=== PATIENT | female | born 1930 | race Caucasian/White ===

== ENCOUNTER 2017-02-11 14:05 | Outpatient (CLI) | payer MEDICARE ==
[2017-02-11 20:28] LABS: Bilirubin Negative (Negative); Blood, Urine Moderate (Negative); Clarity Slightly Cloudy (Clear); Glucose, Urine (Dipstick) Negative (Negative); Leukocyte Large (Negative); Nitrite Positive (Negative); Protein, Urine (Dipstick) 100 mg/dL (Neg-Trace); Specific Gravity, Urine 1.015 (1.005-1.030); Urobilinogen 0.2 mg/dL (0.2-1.0)
[2017-02-11 21:07] LABS: pH, Urine Greater/Equal 9.0 (5.0-9.0)
[2017-02-11 21:11] LABS: Bacteria/HPF 1+ HPF (None Seen); Crystals/HPF RARE TRIPLE PHOS HPF (Negative); RBC/HPF 0-3 HPF (0-3); Squamous Epithelial 0-3 HPF (0-3); WBC/HPF 21-50 HPF (0-3)
== END 2017-02-11 14:06 | disposition home or self-care (01) ==
LOC: HPCALD 14:05
PROVIDERS: ATTEND Family Medicine
DX: N39.0 Urinary tract infection, site not specified (principal)
CPT/HCPCS: 81001; 87077; 87086

== ENCOUNTER 2017-02-24 08:46 | Outpatient (CLI) | payer MEDICARE ==
[2017-02-24 09:23] LABS: #Basophils 0.1 thou/uL (0.0-0.2); #Eosinphils 0.2 thou/uL (0.0-0.7); #Monocytes 0.8 thou/uL (0.11-0.59); #Neutrophils 5.1 thou/uL (1.40-6.50); %Basophils 1.3 % (0.0-1.0); %Eosinophils 2.1 % (0.0-10.0); %Monocytes 8.9 % (0.0-10.0); %Neutrophils 59.7 % (42.0-75.0); Hemoglobin 15.8 g/dL (12.0-16.0); Mean Corpuscular HGB CONC 36.4 g/dL (32.0-36.0); Mean Corpuscular Hemoglobin 34.5 pg (27.0-31.0); Mean Corpuscular Volume 94.9 fl (81.0-99.0); Mean Platelet Volume 8.3 fL (7.4-10.4); Platelet Count 206 thou/uL (130-400); RBC Distribution Width 12.4 % (11.5-14.5); Red Blood Cell (RBC) Count 4.56 mill/uL (4.20-5.40); White Blood Cell (WBC) Count 8.6 thou/uL (4.8-10.8)
[2017-02-24 09:25] LABS: MDiff Complete? YES; Manual Diff?? NO
[2017-02-24 09:47] LABS: Hemoglobin A1c 5.7 % (4.0-6.0)
[2017-02-24 10:19] LABS: ALT (SGPT) 20 U/L (0-55); AST (SGOT) 18 U/L (5-34); Albumin 4.4 g/dL (3.4-4.8); Alkaline Phosphatase 74 U/L (40-150); Anion Gap 15 mmol/L (10-20); BUN (Urea Nitrogen) 16 mg/dL (9.8-20.1); Bilirubin, Total 0.8 mg/dL (0.2-1.2); Calc. Creatinine Clearance 0 mL/min (70-130); Calcium 9.3 mg/dL (7.8-10.44); Carbon Dioxide 29 mmol/L (23-31); Chloride 106 mmol/L (98-107); Cholesterol 222 mg/dL (< 200 Desired); Estimated GFR-MDRD 59; Globulin 2.4 g/dL (2.4-3.5); Glucose 68 mg/dL (83-110); HDL Cholesterol 37 mg/dL (>60 Neg Risk); LDL Cholesterol, Calculated 141 mg/dL; Magnesium 2.2 mg/dL (1.6-2.6); Potassium 3.8 mmol/L (3.5-5.1); Protein, Total 6.8 g/dL (5.8-8.1); Sodium 146 mmol/L (136-145); Triglycerides 219 mg/dL (Less than 150)
[2017-02-24 10:36] LABS: Free T4 (Free Thyroxine) 0.8 ng/dL (0.70-1.48); Thyroid Stimulating Hormone 0.0671 uIU/mL (0.35-4.94)
== END 2017-02-24 08:47 | disposition home or self-care (01) ==
LOC: BURLAB 08:46
PROVIDERS: ATTEND Family Medicine
DX: E78.2 Mixed hyperlipidemia (principal); E03.9 Hypothyroidism, unspecified; E55.9 Vitamin D deficiency, unspecified; I10 Essential (primary) hypertension; I48.91 Unspecified atrial fibrillation; Z79.899 Other long term (current) drug therapy
CPT/HCPCS: 36415; 80053; 80061; 82306; 83036; 83735; 84439; 84443; 85025

== ENCOUNTER 2017-05-16 11:22 | Emergency (ER) | payer MEDICARE ==
[2017-05-16] MEDS ORDERED: Labetalol HCl 100 MG/20 ML VIAL ONE (11:40)
[2017-05-16 11:46] LABS: #Basophils 0.1 thou/uL (0.0-0.2); #Eosinphils 0.2 thou/uL (0.0-0.7); #Lymphocytes 2.5 thou/uL (1.20-3.40); #Monocytes 0.8 thou/uL (0.11-0.59); #Neutrophils 6.5 thou/uL (1.40-6.50); %Basophils 0.9 % (0.0-1.0); %Eosinophils 1.5 % (0.0-10.0); %Lymphocytes 25.1 % (21.0-51.0); %Monocytes 7.8 % (0.0-10.0); %Neutrophils 64.7 % (42.0-75.0); Hemoglobin 16.1 g/dL (12.0-16.0); Mean Corpuscular Hemoglobin 30.9 pg (27.0-31.0); Mean Corpuscular Volume 90.7 fl (81.0-99.0); Platelet Count 216 thou/uL (130-400)
[2017-05-16 11:53] LABS: INR-International Normal Ratio 1.6; PTT 32.1 SEC (22.9-36.1); Prothrombin Time 19.5 SEC (12.0-14.7)
[2017-05-16 12:01] LABS: ALT (SGPT) 19 U/L (8-55); AST (SGOT) 15 U/L (5-34); Albumin 4.6 g/dL (3.4-4.8); Alkaline Phosphatase 74 U/L (40-150); Anion Gap 14 mmol/L (10-20); BUN (Urea Nitrogen) 17 mg/dL (9.8-20.1); Bilirubin, Total 0.8 mg/dL (0.2-1.2); CK (CPK) 29 U/L (29-168); Calc. Creatinine Clearance 0 mL/min (70-130); Calcium 9.8 mg/dL (7.8-10.44); Carbon Dioxide 29 mmol/L (23-31); Chloride 105 mmol/L (98-107); Estimated GFR-MDRD 53; Globulin 3.2 g/dL (2.4-3.5); Glucose 117 mg/dL (83-110); Potassium 4.1 mmol/L (3.5-5.1); Protein, Total 7.8 g/dL (6.0-8.3); Sodium 144 mmol/L (136-145)
[2017-05-16 12:04] LABS: CKMB 1.1 ng/mL (0-6.6); Troponin I 0.013 ng/mL (< 0.028)
--- NOTE | 2017-05-16 17:46 | CT ---
CT OF THE BRAIN WITHOUT CONTRAST 05/16/17 Comparison is made with a prior CT dated 01/13/16. The findings are quite similar and show some focal areas of patchy hypolucency throughout the deep w sally matter bilaterally. The most prominent is in the right parietal region which was present before . The other area of slight prominence is in the left posterior frontal region. While seen better tod ay than previously, it was probably present before. Otherwise, there were no findings of acute strok e, mass, or edema. Some atrophy is present with mild compensatory dilatation of the ventricles. Ther e is no ventricular shift. The pituitary gland may be slightly generous in size, but this is difficu lt to assess on CT scanning. IMPRESSION: 1. No definite acute findings. Slight area of low density in the left posterior frontal region was probably present on the 2016 scan, though seen better today. If the clinical symptoms were stron gly suggestive of acute stroke, then an MRI would be needed to separate this out from chronic ischem ic change. 2. There is some chronic ischemic change in this patient. 3. Equivocal prominence of pituitary tissue but an equivocal finding on this one scan alone. I am not sure it is substantially different than the 2016 scan. POS: HOME
== END 2017-05-16 15:03 ==
LOC: BURERS 11:22
DX: R47.1 Dysarthria and anarthria (principal); I10 Essential (primary) hypertension; E11.9 Type 2 diabetes mellitus without complications; E03.9 Hypothyroidism, unspecified; K21.9 Gastro-esophageal reflux disease without esophagitis; E78.5 Hyperlipidemia, unspecified; M19.90 Unspecified osteoarthritis, unspecified site; F32.9 Major depressive disorder, single episode, unspecified; Z79.899 Other long term (current) drug therapy
CPT/HCPCS: 36416; 70450; 80053; 82553; 84484; 85025; 85610; 85730; 93005; 94760

== ENCOUNTER 2017-05-28 09:06 | Outpatient (CLI) | payer MEDICARE ==
[2017-05-28 10:34] LABS: Anion Gap 15 mmol/L (10-20); BUN (Urea Nitrogen) 14 mg/dL (9.8-20.1); Calc. Creatinine Clearance 0 mL/min (70-130); Calcium 9.4 mg/dL (7.8-10.44); Carbon Dioxide 29 mmol/L (23-31); Cardiac Risk 3.2 (Less than 4.5); Chloride 103 mmol/L (98-107); Cholesterol 121 mg/dl (< 200 Desired); Estimated GFR-MDRD 60; Glucose 141 mg/dL (83-110); HDL Cholesterol 38 mg/dL (>60 Neg Risk); LDL Cholesterol, Calculated 50 mg/dL; Potassium 3.9 mmol/L (3.5-5.1); Sodium 143 mmol/L (136-145); Triglycerides 167 mg/dL (Less than 150)
[2017-05-28 12:10] LABS: Hemoglobin A1c 5.9 % (4.0-6.0)
== END 2017-05-28 09:07 | disposition home or self-care (01) ==
LOC: BURLAB 09:06
PROVIDERS: ATTEND Family Medicine
DX: E11.9 Type 2 diabetes mellitus without complications (principal); E78.5 Hyperlipidemia, unspecified; Z79.899 Other long term (current) drug therapy
CPT/HCPCS: 36415; 80048; 80061; 83036

== ENCOUNTER 2019-01-05 07:56 | Emergency (ER) | payer MEDICARE ==
[2019-01-05] MEDS ORDERED: Prochlorperazine 10 MG/2 ML VIAL ONE (08:34)
[2019-01-05] MEDS ORDERED: diphenhydrAMINE 50 MG/ML VIAL ONE (08:35)
[2019-01-05 08:37] LABS: #Basophils 0.1 thou/uL (0.0-0.2); #Lymphocytes 1.7 thou/uL (1.20-3.40); #Monocytes 0.9 thou/uL (0.11-0.59); #Neutrophils 9.9 thou/uL (1.40-6.50); %Basophils 0.5 % (0.0-1.0); %Eosinophils 0.4 % (0.0-10.0); %Lymphocytes 13.4 % (21.0-51.0); %Monocytes 6.8 % (0.0-10.0); %Neutrophils 78.8 % (42.0-75.0); Hemoglobin 15.8 g/dL (12.0-16.0); Mean Corpuscular Hemoglobin 31.4 pg (27.0-31.0); Mean Corpuscular Volume 89.7 fL (78.0-98.0); Mean Platelet Volume 8.5 fL (7.4-10.4); Platelet Count 225 thou/uL (130-400); RBC Distribution Width 12.5 % (11.5-14.5); Red Blood Cell (RBC) Count 5.03 mill/uL (4.20-5.40); White Blood Cell (WBC) Count 12.6 thou/uL (4.8-10.8)
[2019-01-05 08:52] LABS: ALT (SGPT) 34 U/L (8-55); AST (SGOT) 19 U/L (5-34); Albumin 4.7 g/dL (3.4-4.8); Alkaline Phosphatase 70 U/L (40-150); Anion Gap 15 mmol/L (10-20); BUN (Urea Nitrogen) 20 mg/dL (9.8-20.1); Bilirubin, Total 0.9 mg/dL (0.2-1.2); Calc. Creatinine Clearance 0 mL/min (70-130); Calcium 9.6 mg/dL (7.8-10.44); Carbon Dioxide 29 mmol/L (23-31); Chloride 100 mmol/L (98-107); Estimated GFR-MDRD 66; Globulin 2.9 g/dL (2.4-3.5); Glucose 197 mg/dL (83-110); Potassium 3.2 mmol/L (3.5-5.1); Protein, Total 7.6 g/dL (6.0-8.3); Sodium 141 mmol/L (136-145)
--- NOTE | 2019-01-05 09:24 | CT ---
CT OF THE BRAIN WITHOUT CONTRAST: Date: 01/05/19 Computed tomography of the brain was performed for evaluation of headache. Comparison is made with a 05/16/17 CT exam. FINDINGS: A rounded, 1.4 cm, density is seen in the suprasellar region today that looks larger than before and is rounder. Prior MRI showed a sellar mass arising into the suprasellar region and slightly pressing on the optic chiasm. The overall size is a bit larger today and it seems a bit denser than before. No subarachnoid hemorrhage was seen. No blood seen elsewhere in the brain. Overall, diffuse atrophy and chronic deep white matter ischemic changes predominate. Small acute strokes would be missed due that background. There is no evidence of edema. The ventricular sizes are normal given age and atrophy. IMPRESSION: 1.4 cm sellar/suprasellar mass that seems to have enlarged since the 2017 CT scan. It also has become more hyperdense. The presumption is that this is an enlargement of the known mass, rather than an a neurysm. MRI could be helpful given a prior comparison. Consultation with neurosurgery to determina te if any other actions should be considered would be prudent. Discussed initially with Dr. Koch at 0850 hours and follow-up at 0858 hours. CODE CR. POS: HOME
[2019-01-05] MEDS ORDERED: Fentanyl 100 MCG/2 ML VIAL ONE (10:10)
[2019-01-05] MEDS ORDERED: Amlodipine 5 MG TAB PO SCH (10:30)
[2019-01-05] MEDS ORDERED: Lisinopril 10 MG TAB PO SCH (10:30)
== END 2019-01-05 10:29 | disposition short-term general hospital (02) ==
LOC: BURERS 07:56
DX: R22.0 Localized swelling, mass and lump, head (principal); E03.9 Hypothyroidism, unspecified; K21.9 Gastro-esophageal reflux disease without esophagitis; E78.5 Hyperlipidemia, unspecified; I10 Essential (primary) hypertension; M19.90 Unspecified osteoarthritis, unspecified site; E87.6 Hypokalemia; E11.9 Type 2 diabetes mellitus without complications; Z79.899 Other long term (current) drug therapy; Z79.4 Long term (current) use of insulin; Z79.01 Long term (current) use of anticoagulants
CPT/HCPCS: 36415; 70450; 80053; 84443; 85025; 93005; 94760; 96374; 96375; J0780; J1200; J3010

== ENCOUNTER 2019-01-12 16:35 | Inpatient (IN) | payer MEDICARE ==
[2019-01-12] MEDS ORDERED: Hyoscyamine Sulfate SL 0.125 mg Tablet SL PRN (21:09)
[2019-01-12] MEDS ORDERED: Phenazopyridine HCl 97.5 MG TABLET PO PRN (21:09)
[2019-01-12] MEDS ORDERED: Nystatin Powder 15 GM BOT TOP PRN (21:09)
[2019-01-12] MEDS ORDERED: HumaLOG 300 UNITS/3 ML VIAL SC PRN (21:12)
[2019-01-12] MEDS ORDERED: Dextrose 5% in Water 1,000 ML IV PRN (21:12)
[2019-01-12] MEDS ORDERED: Dextrose 50% Abboject 50 ML SYRINGE SLOW IVP PRN (21:12)
[2019-01-12 22:11] VITALS: BMI 29.7
[2019-01-12] MEDS: Vancomycin HCl 25 MG/ML Oral PO SCH (22:54)
--- NOTE | 2019-01-13 03:26 | HP ---
CHIEF COMPLAINT: Need for rehabilitation. HISTORY OF THE PRESENT ILLNESS: Mrs. Andrew Potts is an 88-year-old female with a past medical history of sellar mass, diagnosed in 2017, diabetes, hypothyroidism, GERD, hyperlipidemia, hypertension, early Alzheimer dementia, hypokalemia, and history of bladder surgery and subsequent suprapubic cath placement, who presented to the emergency room on January 05, 2019, with complaint of severe headache. She reported it was the worst headache of her life. There was no clear trigger and no alleviating factors. The symptoms started suddenly and were associated with nausea. An MRI was performed, which showed increasing size of her suprasellar mass with a possible hemorrhage. Neurosurgery was consulted. They determined that this was a hemorrhage within the pituitary adenoma that was previously known to exist and suspect that it will likely involute and resolve and improve spontaneously. The patient was on Xarelto for history of chronic atrial fibrillation, and this was held along with her aspirin. She was monitored while hospitalized and had no evidence of worsening of symptoms and eventually was able to have her aspirin restarted at the direction of Neurosurgery and they had also stated she would be able to restart her Xarelto 2 weeks after her admission on approximately January 20. The patient also had an elevated white blood cell count of 20,000 on admission and had no other symptoms. She had diarrhea on and off for months with a history of chronic indwelling suprapubic cath for neurogenic bladder and has over the past few months had multiple courses of antibiotics for possible UTIs. The patient was originally started on empiric antibiotics. However, her stool tested positive for Clostridium difficile antigen and toxin. Her urine culture grew out 5 different organisms, and therefore, Dr. Sanchez with Infectious Disease was consulted. He concluded that the leukocytosis was most likely due to a chronic Clostridium difficile infection from her recurrent antibiotics for bacteria in her bladder. He recommended against treating the bacteria in the bladder without any evidence of invasive infection and has recommended a 2-week course of vancomycin followed by about a 1-month taper to try and prevent recurrence of the Clostridium difficile. On the date of her transfer, since her suprapubic cath was due to be changed in [place] with her urologist on January 13, Urology was consulted and performed a suprapubic catheter change. The patient reports minimal discomfort from this change. The patient is currently without complaints and glad to be back in [place]. She denies pain, nausea, or vomiting. She does admit to some abdominal soreness. She states that she is now having hard formed stools and actually has not had a recent bowel movement. Her contact isolation was ordered to continue. PAST MEDICAL HISTORY: 1. 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 2. Recent sepsis due to Clostridium difficile that has now resolved. 3. Clostridium difficile colitis in December 2018. 4. Neurogenic bladder, status post suprapubic cath with cath change on January 12, 2019. 5. Hypothyroidism. 6. Chronic atrial fibrillation with anticoagulation being held until January 20, 2019. 7. Type 2 diabetes. 8. Hypertension. 9. Early Alzheimer dementia. 10. Gastroesophageal reflux disease. 11. Hyperlipidemia. PAST SURGICAL HISTORY: 1. Hysterectomy. 2. Right hip repair. 3. Bilateral knee surgery. 4. Hemorrhoids. 5. Bladder surgery. 6. Suprapubic catheter placement. 7. Cholecystectomy. 8. Salivary gland removal that resulted in nerve damage to the left side of the face/eyelid. SOCIAL HISTORY: The patient denies alcohol, drugs, or smoking in her history. She is and lives with her in [place], who is apparently suffering from advanced Alzheimer's. FAMILY HISTORY: Noncontributory for the current presentation. ALLERGIES: ADHESIVE TAPE, CYMBALTA, LATEX, NATURAL RUBBER, PENICILLIN, PHENOBARBITAL, AND TRAMADOL. MEDICATIONS: 1. Aspirin 81 mg p.o. daily. 2. Benzonatate 100 mg p.o. t.i.d. 3. Tricor 145 mg orally at bedtime. 4. Flecainide 50 mg p.o. b.i.d. 5. Lantus 15 units subcu at bedtime. 6. Zofran ODT 4 mg orally every 6 hours as needed. 7. Potassium chloride 10 mEq orally every morning with breakfast. 8. Trospium 20 mg p.o. b.i.d. 9. Vancomycin 125 mg orally every 6 hours. 10. Amlodipine 5 mg p.o. q.p.m. 11. Levothyroxine 125 mcg p.o. daily. 12. Zestril 10 mg p.o. daily. 13. Aricept 10 mg p.o. at bedtime. 14. Imdur ER 30 mg p.o. daily. 15. Phenazopyridine 100 mg p.o. b.i.d. p.r.n. bladder spasms. 16. [place] 10/325 one p.o. q.6 hours p.r.n. pain. 17. Hyoscyamine sulfate sublingual 0.125 mg sublingually every 6 hours as needed for cramping. 18. Sertraline 50 mg p.o. at bedtime. 19. Atorvastatin 40 mg p.o. at bedtime. REVIEW OF SYSTEMS: CONSTITUTIONAL: The patient has had no fever or chills. She does have generalized weakness from her hospital stay. HEENT: Eyes, the patient reports strabismus and inability to open her eyelid on the left that is chronic and worsening over time. She denies diplopia, and wears corrective lenses. ENT; the patient denies rhinorrhea, sore throat, or ear pain. RESPIRATORY: Denies cough, sputum production, shortness of breath, or hemoptysis. CARDIOVASCULAR: Denies chest pain, palpitations, orthopnea, or PND. GASTROINTESTINAL: The patient denies any current nausea or vomiting, although she presented with this. She reports intermittent diarrhea off and on that has now resolved and some abdominal soreness. NEUROLOGIC: The patient has had severe headache at the time of presentation that has improved. No vertigo or presyncopal feelings. She denies numbness or tingling or focal weakness. GENITOURINARY: The patient has an indwelling suprapubic cath. She has had no gross hematuria. LYMPH: The patient has had no swelling. DERM: The patient has had some intertriginous erythema that has been treated with powder during her hospitalization and has had a protective barrier to the sacrum. She has no known wounds. She denies any itching or rash otherwise. PHYSICAL EXAMINATION: VITAL SIGNS: Temperature 99.2, pulse 98, respirations 20, O2 saturation 92% on room air, and blood pressure 105/55. GENERAL: Well-developed, overweight female, who is alert and oriented to person, place, and situation. She is also oriented to the time. HEENT: Ptosis on the left. The left pupil is nonreactive to light and accommodation and is deviated to the left. The right pupil is 3 mm and reactive to light and accommodation, right extraocular muscles are intact. Left extraocular muscles to the caudad, cephalad, and the left direction are intact. She has decreased extraocular movement of the left to the right. Nares are patent without discharge. Tongue protrudes in the midline. Her soft palate is clear. No tonsillar erythema or exudate. There is a yellow crusted matting to bilateral eyes, left greater than right. NECK: Supple without lymphadenopathy, thyromegaly, JVD, or bruit. CARDIOVASCULAR: Regular rate and rhythm with a 3/6 systolic ejection murmur, best heard at the left upper sternal border without radiation. LUNGS: Clear to auscultation with good air entry bilaterally. No crackles, wheezes, or increased work of breathing. ABDOMEN: Hypoactive bowel sounds in all 4 quadrants. Soft, nontender, and nondistended. No masses, guarding, or rebound tenderness. Suprapubic catheter is present with a small amount of bloody discharge. No surrounding erythema or purulent drainage. : Clear yellow urine in bag. SKIN: The patient has petechia to the bilateral forearms. She has blanching erythema to the sacral region, but no skin breakdown. NEUROLOGIC: Moves all extremities x4. Generalized weakness. Cranial nerves 2 through 12 were grossly intact with the exception of the ptosis, extraocular deficit as noted above. LABORATORY DATA: CBC performed on January 09, 2019, with white count of 11,000, 74 % neutrophils, 16% lymphocytes, hemoglobin 13.3, hematocrit 38.1, platelet 186. Metabolic profile from January 12; sodium 134, potassium 3.7, chloride 93, bicarbonate 33, BUN 13, creatinine 1.03, glucose 124, calcium 9.6. LFTs from January 08 are within normal limits. Hemoglobin A1c was 6 on December 11. Magnesium on January 09 was 1.6. TSH on January 06 was 0.13, free T3 of 1.06, free T4 of 0.85. Urine on January 05 was remarkable for 100 protein, moderate blood, trace leukocyte esterase, 11 to 20 wbc's, 4 to 6 rbc's, 3+ urine bacteria. Urine culture from January 05 grew out presumptive Pseudomonas, gram-negative beatriz 1, 2, and 3, and gamma hemolytic Streptococcus. Blood culture on January 06 x2 negative for growth at 5 days. Clostridium difficile antigen and toxin on January 09, 2019, positive. IMAGING STUDIES: MRI of the brain on January 05, 2019, with slightly enlarging pituitary lesion with signal characteristics concerning for acute internal hemorrhage. CT [place] angio with contrast on January 06, 2019, showed no evidence of aneurysm of the [place]. Symmetric enhancement in luminal diameter of both intracranial and internal carotid arteries. No significant stenosis at the level of the sellar or suprasellar regions. Incompletely evaluated pituitary tumor. Refer to recent brain MRI for further details. CT scan of the sinuses on January 06, 2019, with expansion and attenuation of the osseous structures of the sella related to the patient's previously diagnosed sellar mass. No acute paranasal sinus fluid level. Chest x-ray on January 06, 2019 with borderline heart size. ASSESSMENT AND PLAN: 1. Physical deconditioning from hospital stay/generalized weakness. The patient will be admitted to [facility] for physical and occupational therapy. Ultimate plan is for the patient to return home with home health. 2. Hemorrhagic pituitary adenoma. The patient will be continued on her aspirin at this time with plans to resume her Xarelto on approximately January 20, pending no further bleeding episodes at the direction of Neurosurgery. She will also follow up with Dr. Quigley in 3 to 4 weeks. 3. Clostridium difficile colitis. We will avoid the use of unnecessary antibiotics. The patient will continue contact isolation at this time. Per Dr. Sanchez's recommendation, the patient will be on a 2-week course of oral vancomycin, followed by about a 1-month taper to try and prevent recurrence. We will either have her see Dr. Sanchez or consult with him over the phone in approximately 14 days. 4. Neurogenic bladder, status post suprapubic catheterization. This was changed today, January 12. 5. Hypothyroidism. The patient's recent TSH was suppressed. Her levothyroxine will be continued at this time. 6. Chronic atrial fibrillation. The patient's rhythm on exam is regular and she is rate controlled. She is currently only on aspirin for platelet inhibition. As per above, we should be able to restart her Xarelto in a couple of weeks. 7. Type 2 diabetes. The patient will be continued on her insulin regimen with Accu-Cheks q.a.c. and at bedtime and bedtime correctional algorithm. 8. Hypertension. The patient will be continued on her current regimen with blood pressure monitoring. 9. Early Alzheimer dementia. The patient will be continued on her donepezil at bedtime. 10. Gastroesophageal reflux disease. The patient will be placed on Pepcid b.i.d. Would avoid a PPI secondary to her history of Clostridium difficile. 11. Intertrigo. We will order nystatin powder. 12. Hyperlipidemia. The patient's Tricor will be continued as well as her statin. 13. Prophylaxis. The patient is not a candidate at this time for oral anticoagulation, so we will place SCDs. Order Pepcid as above. 14. Code status. The patient is adamant about [id number] or attempt resuscitation status. Job ID: [id number] [facility]
[2019-01-13 06:11] LABS: #Basophils 0.1 thou/uL (0.0-0.2); #Eosinphils 0.2 thou/uL (0.0-0.7); #Neutrophils 12.8 thou/uL (1.40-6.50); %Basophils 0.6 % (0.0-1.0); %Lymphocytes 17.4 % (21.0-51.0); %Neutrophils 74.9 % (42.0-75.0); Hemoglobin 14.4 g/dL (12.0-16.0); Mean Corpuscular HGB CONC 33.4 g/dL (32.0-36.0); Mean Corpuscular Hemoglobin 31.1 pg (27.0-31.0); Mean Corpuscular Volume 93.2 fL (78.0-98.0); Mean Platelet Volume 8.5 fL (7.4-10.4); Platelet Count 217 thou/uL (130-400); RBC Distribution Width 12.8 % (11.5-14.5); Red Blood Cell (RBC) Count 4.63 mill/uL (4.20-5.40)
[2019-01-13 06:22] LABS: ALT (SGPT) 15 U/L (8-55); AST (SGOT) 13 U/L (5-34); Albumin 3.5 g/dL (3.4-4.8); Alkaline Phosphatase 44 U/L (40-150); Anion Gap 14 mmol/L (10-20); BUN (Urea Nitrogen) 15 mg/dL (9.8-20.1); Calc. Creatinine Clearance 39 mL/min (70-130); Calcium 9.3 mg/dL (7.8-10.44); Carbon Dioxide 32 mmol/L (23-31); Chloride 93 mmol/L (98-107); Estimated GFR-MDRD 37; Globulin 2.4 g/dL (2.4-3.5); Glucose 139 mg/dL (83-110); Potassium 3.7 mmol/L (3.5-5.1); Protein, Total 5.9 g/dL (6.0-8.3); Sodium 135 mmol/L (136-145)
[2019-01-13] MEDS: Levothyroxine Sodium 100 MCG TAB PO SCH (06:27)
[2019-01-13] MEDS: Vancomycin HCl 25 MG/ML Oral PO SCH ×4 (06:27→23:59)
[2019-01-13] MEDS: Levothyroxine Sodium 25 MCG TAB PO SCH (06:27)
[2019-01-13] MEDS: HYDROcodone/Acetaminophen 10/325 mg Tablet PO PRN (08:50)
[2019-01-13] MEDS: Famotidine 20 MG TAB PO SCH ×2 (08:54→21:36)
[2019-01-13] MEDS: Benzonatate 100 MG CAP PO SCH ×3 (08:54→21:36)
[2019-01-13] MEDS: Lisinopril 10 MG TAB PO SCH (08:56)
[2019-01-13] MEDS: Trospium 20 MG TAB PO SCH ×2 (08:57→21:36)
[2019-01-13] MEDS: Flecainide 50 MG TAB PO SCH ×2 (08:57→21:36)
[2019-01-13] MEDS: Potassium Chloride 10 MEQ TAB PO SCH (09:00)
[2019-01-13] MEDS: Aspirin 81 mg Enteric Coated Tablet PO SCH (09:00)
[2019-01-13] MEDS: HumaLOG 300 UNITS/3 ML VIAL SC PRN (12:32)
[2019-01-13] MEDS ORDERED: Fenofibrate Nanocrystallized 145 MG TAB PO SCH (21:00)
[2019-01-13] MEDS: Amlodipine 5 MG TAB PO SCH (21:36)
[2019-01-13] MEDS: Donepezil HCl 10 MG TAB PO SCH (21:36)
[2019-01-13] MEDS: Atorvastatin Calcium 40 MG TAB PO SCH (21:37)
[2019-01-13] MEDS: Lantus 1000 UNITS/10 ML VIAL SC SCH (21:37)
[2019-01-14] MEDS: Levothyroxine Sodium 25 MCG TAB PO SCH (05:43)
[2019-01-14] MEDS: Vancomycin HCl 25 MG/ML Oral PO SCH ×3 (05:43→18:08)
[2019-01-14] MEDS: Levothyroxine Sodium 100 MCG TAB PO SCH (05:43)
[2019-01-14] MEDS: Potassium Chloride 10 MEQ TAB PO SCH (09:23)
[2019-01-14] MEDS: HYDROcodone/Acetaminophen 10/325 mg Tablet PO PRN ×2 (09:24→15:18)
[2019-01-14] MEDS: Lisinopril 10 MG TAB PO SCH (09:26)
[2019-01-14] MEDS: Trospium 20 MG TAB PO SCH ×2 (09:26→21:17)
[2019-01-14] MEDS: Flecainide 50 MG TAB PO SCH ×2 (09:26→21:16)
[2019-01-14] MEDS: Benzonatate 100 MG CAP PO SCH ×3 (09:26→21:17)
[2019-01-14] MEDS: Famotidine 20 MG TAB PO SCH ×2 (09:26→21:17)
[2019-01-14] MEDS: Aspirin 81 mg Enteric Coated Tablet PO SCH (09:27)
[2019-01-14] MEDS: HumaLOG 300 UNITS/3 ML VIAL SC PRN ×2 (12:50→18:09)
[2019-01-14] MEDS ORDERED: Polyethylene Glycol OPTH DROP 15 ML BOT EA EYE PRN (12:57)
[2019-01-14] MEDS: Lantus 1000 UNITS/10 ML VIAL SC SCH (21:15)
[2019-01-14] MEDS: Amlodipine 5 MG TAB PO SCH (21:17)
[2019-01-14] MEDS: Atorvastatin Calcium 40 MG TAB PO SCH (21:17)
[2019-01-14] MEDS: Fenofibrate 48 MG TAB PO SCH (21:17)
[2019-01-14] MEDS: Donepezil HCl 10 MG TAB PO SCH (21:17)
[2019-01-15] MEDS: Vancomycin HCl 25 MG/ML Oral PO SCH ×4 (00:03→17:32)
[2019-01-15] MEDS: Levothyroxine Sodium 100 MCG TAB PO SCH (05:45)
[2019-01-15] MEDS: Levothyroxine Sodium 25 MCG TAB PO SCH (05:45)
[2019-01-15] MEDS: Trospium 20 MG TAB PO SCH ×2 (09:13→21:20)
[2019-01-15] MEDS: Potassium Chloride 10 MEQ TAB PO SCH (09:13)
[2019-01-15] MEDS: Famotidine 20 MG TAB PO SCH ×2 (09:13→21:21)
[2019-01-15] MEDS: Aspirin 81 mg Enteric Coated Tablet PO SCH (09:14)
[2019-01-15] MEDS: Benzonatate 100 MG CAP PO SCH ×3 (09:14→21:21)
[2019-01-15] MEDS: Flecainide 50 MG TAB PO SCH ×2 (09:15→21:21)
[2019-01-15] MEDS: Lisinopril 10 MG TAB PO SCH (09:20)
[2019-01-15] MEDS: HumaLOG 300 UNITS/3 ML VIAL SC PRN (12:50)
[2019-01-15] MEDS: HYDROcodone/Acetaminophen 10/325 mg Tablet PO PRN ×2 (17:39→23:59)
[2019-01-15] MEDS: Atorvastatin Calcium 40 MG TAB PO SCH (21:20)
[2019-01-15] MEDS: Donepezil HCl 10 MG TAB PO SCH (21:20)
[2019-01-15] MEDS: Fenofibrate 48 MG TAB PO SCH (21:20)
[2019-01-15] MEDS: Lantus 1000 UNITS/10 ML VIAL SC SCH (21:21)
[2019-01-15] MEDS: Amlodipine 5 MG TAB PO SCH (21:21)
[2019-01-16] MEDS: Levothyroxine Sodium 25 MCG TAB PO SCH (05:11)
[2019-01-16] MEDS: Levothyroxine Sodium 100 MCG TAB PO SCH (05:11)
[2019-01-16] MEDS: Vancomycin HCl 25 MG/ML Oral PO SCH ×4 (05:48→17:32)
[2019-01-16] MEDS: Flecainide 50 MG TAB PO SCH ×2 (09:33→21:32)
[2019-01-16] MEDS: Aspirin 81 mg Enteric Coated Tablet PO SCH (09:33)
[2019-01-16] MEDS: Trospium 20 MG TAB PO SCH ×2 (09:33→21:31)
[2019-01-16] MEDS: Lisinopril 10 MG TAB PO SCH (09:34)
[2019-01-16] MEDS: Potassium Chloride 10 MEQ TAB PO SCH (09:35)
[2019-01-16] MEDS: Benzonatate 100 MG CAP PO SCH ×3 (09:36→21:32)
[2019-01-16] MEDS: Famotidine 20 MG TAB PO SCH ×2 (09:36→21:32)
[2019-01-16] MEDS: HumaLOG 300 UNITS/3 ML VIAL SC PRN (13:25)
[2019-01-16] MEDS: Acetaminophen 325 MG TAB PO PRN (21:30)
[2019-01-16] MEDS: Fenofibrate 48 MG TAB PO SCH (21:31)
[2019-01-16] MEDS: Atorvastatin Calcium 40 MG TAB PO SCH (21:31)
[2019-01-16] MEDS: Donepezil HCl 10 MG TAB PO SCH (21:32)
[2019-01-16] MEDS: Amlodipine 5 MG TAB PO SCH (21:32)
[2019-01-16] MEDS: Lantus 1000 UNITS/10 ML VIAL SC SCH (21:36)
[2019-01-17] MEDS: Vancomycin HCl 25 MG/ML Oral PO SCH ×4 (01:58→18:20)
[2019-01-17] MEDS: Levothyroxine Sodium 25 MCG TAB PO SCH (05:58)
[2019-01-17] MEDS: Levothyroxine Sodium 100 MCG TAB PO SCH (05:58)
[2019-01-17] MEDS: Benzonatate 100 MG CAP PO SCH ×3 (09:38→21:59)
[2019-01-17] MEDS: Potassium Chloride 10 MEQ TAB PO SCH (09:38)
[2019-01-17] MEDS: Famotidine 20 MG TAB PO SCH ×2 (09:38→22:00)
[2019-01-17] MEDS: Flecainide 50 MG TAB PO SCH ×2 (09:39→21:59)
[2019-01-17] MEDS: Aspirin 81 mg Enteric Coated Tablet PO SCH (09:40)
[2019-01-17] MEDS: Lisinopril 10 MG TAB PO SCH (09:40)
[2019-01-17] MEDS: Trospium 20 MG TAB PO SCH ×2 (09:41→21:59)
[2019-01-17] MEDS: HumaLOG 300 UNITS/3 ML VIAL SC PRN (19:30)
[2019-01-17] MEDS: Donepezil HCl 10 MG TAB PO SCH (21:59)
[2019-01-17] MEDS: Atorvastatin Calcium 40 MG TAB PO SCH (21:59)
[2019-01-17] MEDS: Amlodipine 5 MG TAB PO SCH (21:59)
[2019-01-17] MEDS: Fenofibrate 48 MG TAB PO SCH (21:59)
[2019-01-17] MEDS: Lantus 1000 UNITS/10 ML VIAL SC SCH (22:03)
[2019-01-18] MEDS: Vancomycin HCl 25 MG/ML Oral PO SCH ×4 (05:14→17:49)
[2019-01-18] MEDS: Levothyroxine Sodium 25 MCG TAB PO SCH (05:14)
[2019-01-18] MEDS: Levothyroxine Sodium 100 MCG TAB PO SCH (05:14)
[2019-01-18] MEDS: Potassium Chloride 10 MEQ TAB PO SCH (09:21)
[2019-01-18] MEDS: Flecainide 50 MG TAB PO SCH ×2 (09:22→21:46)
[2019-01-18] MEDS: Lisinopril 10 MG TAB PO SCH (09:22)
[2019-01-18] MEDS: Aspirin 81 mg Enteric Coated Tablet PO SCH (09:22)
[2019-01-18] MEDS: Benzonatate 100 MG CAP PO SCH ×3 (09:22→21:45)
[2019-01-18] MEDS: Trospium 20 MG TAB PO SCH ×2 (09:23→21:44)
[2019-01-18] MEDS: Famotidine 20 MG TAB PO SCH ×2 (12:13→21:45)
[2019-01-18] MEDS: HYDROcodone/Acetaminophen 10/325 mg Tablet PO PRN (19:07)
[2019-01-18] MEDS: Lantus 1000 UNITS/10 ML VIAL SC SCH (21:42)
[2019-01-18] MEDS: Fenofibrate Nanocrystallized 145 MG TAB PO SCH (21:44)
[2019-01-18] MEDS: Amlodipine 5 MG TAB PO SCH (21:45)
[2019-01-18] MEDS: Atorvastatin Calcium 40 MG TAB PO SCH (21:45)
[2019-01-18] MEDS: Donepezil HCl 10 MG TAB PO SCH (21:47)
[2019-01-19] MEDS: Vancomycin HCl 25 MG/ML Oral PO SCH ×5 (01:31→23:02)
[2019-01-19] MEDS: Levothyroxine Sodium 25 MCG TAB PO SCH (06:19)
[2019-01-19] MEDS: Levothyroxine Sodium 100 MCG TAB PO SCH (06:19)
[2019-01-19] MEDS: Potassium Chloride 10 MEQ TAB PO SCH (09:28)
[2019-01-19] MEDS: Aspirin 81 mg Enteric Coated Tablet PO SCH (09:28)
[2019-01-19] MEDS: Lisinopril 10 MG TAB PO SCH (09:29)
[2019-01-19] MEDS: Flecainide 50 MG TAB PO SCH ×2 (09:29→22:04)
[2019-01-19] MEDS: Famotidine 20 MG TAB PO SCH ×2 (09:29→22:04)
[2019-01-19] MEDS: Benzonatate 100 MG CAP PO SCH ×3 (09:29→22:03)
[2019-01-19] MEDS: Acetaminophen 325 MG TAB PO PRN (09:30)
[2019-01-19] MEDS: Trospium 20 MG TAB PO SCH ×2 (09:31→22:04)
[2019-01-19] MEDS: Promethazine 25 MG TAB PO PRN (12:59)
[2019-01-19] MEDS ORDERED: Promethazine HCl 25 MG/ML VIAL IM/IV PRN (18:02)
[2019-01-19 18:19] LABS: #Basophils 0.1 thou/uL (0.0-0.2); #Eosinphils 0.1 thou/uL (0.0-0.7); #Lymphocytes 1.6 thou/uL (1.20-3.40); #Monocytes 0.7 thou/uL (0.11-0.59); #Neutrophils 8.7 thou/uL (1.40-6.50); %Basophils 0.6 % (0.0-1.0); %Eosinophils 1.2 % (0.0-10.0); %Lymphocytes 13.8 % (21.0-51.0); %Monocytes 6.4 % (0.0-10.0); %Neutrophils 77.9 % (42.0-75.0); Mean Corpuscular HGB CONC 32.7 g/dL (32.0-36.0); Mean Corpuscular Hemoglobin 31.1 pg (27.0-31.0); Mean Corpuscular Volume 95.1 fL (78.0-98.0); Mean Platelet Volume 7.5 fL (7.4-10.4); Platelet Count 289 thou/uL (130-400); White Blood Cell (WBC) Count 11.2 thou/uL (4.8-10.8)
[2019-01-19 18:35] LABS: ALT (SGPT) 19 U/L (8-55); AST (SGOT) 23 U/L (5-34); Albumin 3.9 g/dL (3.4-4.8); Alkaline Phosphatase 48 U/L (40-150); Anion Gap 12 mmol/L (10-20); BUN (Urea Nitrogen) 16 mg/dL (9.8-20.1); Bilirubin, Total 0.5 mg/dL (0.2-1.2); Calc. Creatinine Clearance 45 mL/min (70-130); Calcium 9.4 mg/dL (7.8-10.44); Carbon Dioxide 28 mmol/L (23-31); Chloride 103 mmol/L (98-107); Estimated GFR-MDRD 44; Globulin 2.8 g/dL (2.4-3.5); Glucose 98 mg/dL (83-110); Potassium 4.4 mmol/L (3.5-5.1); Protein, Total 6.7 g/dL (6.0-8.3); Sodium 139 mmol/L (136-145)
--- NOTE | 2019-01-19 20:49 | RAD ---
ACUTE ABDOMEN SERIES 01/19/19 Supine and erect films show no free air beneath the diaphragm. Numerous surgical clips are seen in th e right upper quadrant from a prior operative procedure. There is a very large amount of fecal materi al in the colon. There are some air fluid levels in it, but the colon does not appear to be overtly o bstructed, nor is there small bowel dilation of concern. Pelvic calcifications appear vascular in sukh ure. No acute bony abnormalities were appreciated. The chest film in the series is compared with a 12/2718 study from [facility]. Mild cardiomeg shlomo is about the same. There is no congestive change or pleural effusion. Calcification is seen in th e aortic arch. The right hilum does not seem as prominent today as it was on the prior film, probably made so by rotation of the patient. There is a short scar or atelectasis in the left mid lung. On th e whole, the lungs are clear. IMPRESSION: 1. Constipation. Some air fluid levels in the colon but no overt obstruction. 2. Cardiomegaly and arteriosclerosis. Stable. POS: HOME
--- NOTE | 2019-01-19 21:06 | CT ---
CT OF THE BRAIN WITHOUT CONTRAST: 01/19/19 Comparison is made with the 01/05/19 CT. I also viewed the 01/05 MRI of the brain. There has been no adverse change in the interval. Again noted is a sellar/suprasellar mass that measu res about 1.4 cm in diameter. It is somewhat hypodense to day and is not hyperdense as in the past. I t has not really changed in size at all over the interval. No gross acute blood was seen in it or in the vicinity. Diffuse atrophy with chronic ischemic changes throughout the deep white matter is present as usual. T here were no findings of acute stroke, edema, or intracranial hemorrhage. Basal ganglia calcification s are seen, particularly on the left. The MRI recognized a very small dural mass in the anterior part of the right middle cranial fossa, almost certainly a tiny meningioma. Knowing where it was with con trast on the MRI, one can better recognize it today. It is of no current concern. The calvarium showe d no acute changes and the paranasal sinuses are clear. The sella is enlarged but unchanged. IMPRESSION: 1. 1.4 cm sellar/suprasellar mass with no adverse change or growth since the last study. No acut e hemorrhage seen. 2. Atrophy and chronic ischemic changes but no acute intracranial findings. POS: HOME
[2019-01-19] MEDS: Fenofibrate Nanocrystallized 145 MG TAB PO SCH (22:03)
[2019-01-19] MEDS: Atorvastatin Calcium 40 MG TAB PO SCH (22:03)
[2019-01-19] MEDS: Donepezil HCl 10 MG TAB PO SCH (22:04)
[2019-01-19] MEDS: Amlodipine 5 MG TAB PO SCH (22:05)
[2019-01-19] MEDS: Lantus 1000 UNITS/10 ML VIAL SC SCH ×2 (22:06→22:33)
[2019-01-19] MEDS ORDERED: Bisacodyl 10 MG SUPP PR SCH (23:00)
[2019-01-20] MEDS: Promethazine 25 MG TAB PO PRN (06:24)
[2019-01-20] MEDS: Levothyroxine Sodium 25 MCG TAB PO SCH (06:39)
[2019-01-20] MEDS: Vancomycin HCl 25 MG/ML Oral PO SCH ×4 (06:39→23:44)
[2019-01-20] MEDS: Levothyroxine Sodium 100 MCG TAB PO SCH (06:39)
[2019-01-20] MEDS: Potassium Chloride 10 MEQ TAB PO SCH (09:14)
[2019-01-20] MEDS: Trospium 20 MG TAB PO SCH ×2 (09:14→21:38)
[2019-01-20] MEDS: Famotidine 20 MG TAB PO SCH ×2 (09:15→21:37)
[2019-01-20] MEDS: Lisinopril 10 MG TAB PO SCH (09:15)
[2019-01-20] MEDS: Benzonatate 100 MG CAP PO SCH ×3 (09:15→21:37)
[2019-01-20] MEDS: Aspirin 81 mg Enteric Coated Tablet PO SCH (09:15)
[2019-01-20] MEDS: Flecainide 50 MG TAB PO SCH ×2 (09:16→21:37)
[2019-01-20] MEDS: Fenofibrate Nanocrystallized 145 MG TAB PO SCH (21:37)
[2019-01-20] MEDS: Donepezil HCl 10 MG TAB PO SCH (21:37)
[2019-01-20] MEDS: Amlodipine 5 MG TAB PO SCH (21:38)
[2019-01-20] MEDS: Atorvastatin Calcium 40 MG TAB PO SCH (21:38)
[2019-01-20] MEDS: Lantus 1000 UNITS/10 ML VIAL SC SCH (21:39)
[2019-01-21] MEDS: Vancomycin HCl 25 MG/ML Oral PO SCH ×4 (06:11→23:45)
[2019-01-21] MEDS: Levothyroxine Sodium 25 MCG TAB PO SCH (06:11)
[2019-01-21] MEDS: Levothyroxine Sodium 100 MCG TAB PO SCH (06:11)
[2019-01-21] MEDS: Potassium Chloride 10 MEQ TAB PO SCH (08:36)
[2019-01-21] MEDS: Aspirin 81 mg Enteric Coated Tablet PO SCH (08:36)
[2019-01-21] MEDS: Famotidine 20 MG TAB PO SCH ×2 (08:36→21:55)
[2019-01-21] MEDS: Trospium 20 MG TAB PO SCH ×2 (08:37→21:55)
[2019-01-21] MEDS: Lisinopril 10 MG TAB PO SCH (08:37)
[2019-01-21] MEDS: Benzonatate 100 MG CAP PO SCH ×3 (08:37→21:56)
[2019-01-21] MEDS: Flecainide 50 MG TAB PO SCH ×2 (08:37→21:56)
[2019-01-21] MEDS: Atorvastatin Calcium 40 MG TAB PO SCH (21:55)
[2019-01-21] MEDS: Donepezil HCl 10 MG TAB PO SCH (21:55)
[2019-01-21] MEDS: Fenofibrate Nanocrystallized 145 MG TAB PO SCH (21:56)
[2019-01-21] MEDS: Amlodipine 5 MG TAB PO SCH (21:59)
[2019-01-21] MEDS: Lantus 1000 UNITS/10 ML VIAL SC SCH (22:00)
[2019-01-22] MEDS: Levothyroxine Sodium 100 MCG TAB PO SCH (05:49)
[2019-01-22] MEDS: Vancomycin HCl 25 MG/ML Oral PO SCH ×2 (05:49→12:44)
[2019-01-22] MEDS: Levothyroxine Sodium 25 MCG TAB PO SCH (05:49)
[2019-01-22 07:34] VITALS: TEMP 97.9
[2019-01-22] MEDS: Trospium 20 MG TAB PO SCH (10:20)
[2019-01-22] MEDS: Flecainide 50 MG TAB PO SCH (10:21)
[2019-01-22] MEDS: Lisinopril 10 MG TAB PO SCH (10:21)
[2019-01-22] MEDS: Benzonatate 100 MG CAP PO SCH ×2 (10:21→15:09)
[2019-01-22] MEDS: Potassium Chloride 10 MEQ TAB PO SCH (10:22)
[2019-01-22] MEDS: Famotidine 20 MG TAB PO SCH (10:22)
[2019-01-22] MEDS: Aspirin 81 mg Enteric Coated Tablet PO SCH (10:22)
[2019-01-22 10:23] VITALS: BP 119/56
== END 2019-01-22 15:45 | disposition home or self-care (01) | DRG 644 ==
LOC: BURMED 19:36
PROVIDERS: ADMIT Family Medicine; ATTEND Family Medicine
DX: D35.2 Benign neoplasm of pituitary gland (principal); A04.72 Enterocolitis due to Clostridium difficile, not specified as recurrent; E23.6 Other disorders of pituitary gland; R53.81 Other malaise; R53.1 Weakness; N31.9 Neuromuscular dysfunction of bladder, unspecified; Z66 Do not resuscitate; E03.9 Hypothyroidism, unspecified; I48.2 Chronic atrial fibrillation; E11.9 Type 2 diabetes mellitus without complications; I10 Essential (primary) hypertension; G30.0 Alzheimer's disease with early onset; F02.80 Dementia in other diseases classified elsewhere, unspecified severity, without behavioral disturbance, psychotic disturbance, mood disturbance, and anxiety; K21.9 Gastro-esophageal reflux disease without esophagitis; E78.5 Hyperlipidemia, unspecified; L30.4 Erythema intertrigo; Z90.710 Acquired absence of both cervix and uterus; Z90.49 Acquired absence of other specified parts of digestive tract; Z98.890 Other specified postprocedural states; Z88.0 Allergy status to penicillin; Z88.8 Allergy status to other drugs, medicaments and biological substances; Z91.040 Latex allergy status; Z79.82 Long term (current) use of aspirin
CPT/HCPCS: 36415; 36416; 70450; 74022; 80053; 85025; J1815; Q0169

== ENCOUNTER 2019-03-02 14:25 | Emergency (ER) | payer MEDICARE | END 2019-03-02 16:12 | disposition home or self-care (01) | LOC: BURERS 14:25 | DX: S16.1XXA Strain of muscle, fascia and tendon at neck level, initial encounter (principal); E11.9 Type 2 diabetes mellitus without complications; E03.9 Hypothyroidism, unspecified; K21.9 Gastro-esophageal reflux disease without esophagitis; E78.5 Hyperlipidemia, unspecified; I10 Essential (primary) hypertension; Z79.899 Other long term (current) drug therapy; Z79.82 Long term (current) use of aspirin | CPT/HCPCS: 93005 ==

== ENCOUNTER 2019-05-10 22:57 | Inpatient (IN) | payer MEDICARE ==
[2019-05-11] MEDS ORDERED: Promethazine 25 MG TAB PO PRN (05:54)
[2019-05-11] MEDS ORDERED: Phenazopyridine HCl 97.5 MG TABLET PO PRN (09:00)
[2019-05-11] MEDS: Rivaroxaban 10 MG TAB PO SCH (09:09)
[2019-05-11] MEDS: Famotidine 20 MG TAB PO SCH ×2 (09:09→21:40)
[2019-05-11] MEDS: Trospium 20 MG TAB PO SCH ×2 (09:09→21:40)
[2019-05-11] MEDS: Levothyroxine Sodium 50 MCG TAB PO SCH (09:10)
[2019-05-11] MEDS: Spironolactone 25 MG TAB PO SCH (09:11)
[2019-05-11] MEDS ORDERED: Dextrose 50% Abboject 50 ML SYRINGE SLOW IVP PRN (13:37)
[2019-05-11] MEDS ORDERED: Dextrose 5% in Water 1,000 ML IV PRN (13:37)
[2019-05-11] MEDS: Donepezil HCl 10 MG TAB PO SCH (21:39)
[2019-05-11] MEDS: Atorvastatin Calcium 40 MG TAB PO SCH (21:40)
[2019-05-11] MEDS: Lantus 1000 UNITS/10 ML VIAL SC SCH (21:41)
[2019-05-11] MEDS: Fenofibrate Nanocrystallized 145 MG TAB PO SCH (21:41)
[2019-05-12 05:33] LABS: #Basophils 0.1 thou/uL (0.0-0.2); #Eosinphils 0.2 thou/uL (0.0-0.7); #Lymphocytes 2.5 thou/uL (1.20-3.40); #Monocytes 0.8 thou/uL (0.11-0.59); #Neutrophils 5.9 thou/uL (1.40-6.50); %Basophils 1.2 % (0.0-1.0); %Lymphocytes 26.2 % (21.0-51.0); %Monocytes 8.4 % (0.0-10.0); %Neutrophils 62.2 % (42.0-75.0); Hemoglobin 11.1 g/dL (12.0-16.0); Mean Corpuscular HGB CONC 31.8 g/dL (32.0-36.0); Mean Corpuscular Hemoglobin 29.5 pg (27.0-31.0); Mean Corpuscular Volume 92.8 fL (78.0-98.0); Mean Platelet Volume 9.1 fL (7.4-10.4); Platelet Count 177 thou/uL (130-400); RBC Distribution Width 12.3 % (11.5-14.5); Red Blood Cell (RBC) Count 3.76 mill/uL (4.20-5.40); White Blood Cell (WBC) Count 9.5 thou/uL (4.8-10.8)
[2019-05-12 05:34] LABS: ALT (SGPT) 14 U/L (8-55); AST (SGOT) 15 U/L (5-34); Albumin 3.6 g/dL (3.4-4.8); Alkaline Phosphatase 59 U/L (40-150); Anion Gap 15 mmol/L (10-20); BUN (Urea Nitrogen) 17 mg/dL (9.8-20.1); Bilirubin, Total 0.5 mg/dL (0.2-1.2); Calc. Creatinine Clearance 34 mL/min (70-130); Calcium 9.3 mg/dL (7.8-10.44); Carbon Dioxide 28 mmol/L (23-31); Chloride 102 mmol/L (98-107); Estimated GFR-MDRD 39; Globulin 2.5 g/dL (2.4-3.5); Glucose 99 mg/dL (83-110); Potassium 3.9 mmol/L (3.5-5.1); Protein, Total 6.1 g/dL (6.0-8.3); Sodium 141 mmol/L (136-145)
[2019-05-12] MEDS ORDERED: Levothyroxine Sodium 50 MCG TAB PO SCH (06:00)
[2019-05-12] MEDS: Levothyroxine Sodium 50 MCG TAB PO SCH (06:00)
--- NOTE | 2019-05-12 07:06 | HP ---
PRIMARY CARE PHYSICIAN: Tobi Oliver MD CHIEF COMPLAINT: Extended stay at [facility] for skilled rehabilitation for physical deconditioning after complicated UTI with sepsis, non ST-segment elevation myocardial infarction and severe hypokalemia. HISTORY OF PRESENT ILLNESS: Ms. Potts is an 89-year-old female with chronic atrial fibrillation with RVR, history of hemorrhagic pituitary adenoma, diabetes, hypothyroidism, hypertension, and dementia, was admitted at [facility] on April 28, 2019, complaining of fever with confusion. The patient has a chronic suprapubic indwelling catheter. During her admission, the patient had a white count of 14, with elevated troponins, she had a positive urine test. She received volume resuscitation and was started on IV cefepime and vancomycin. She was doing well until she developed respiratory distress secondary to congestive failure, possibly from excessive volume resuscitation. She was started on Lasix. After diuresis, the patient became unresponsive with apneic breathing. She had 2 runs of ventricular fibrillation and torsades. Her test showed severe hypokalemia and hypomagnesemia. Her electrolytes were adequately replaced. Due to her prolonged and complicated hospitalization, the patient became deconditioned, she is requiring assistance for ambulation with significant fatigue. She is still on low O2 support. The patient would benefit from continued rehab before returning to home. According to her granddaughter, the patient is not eating well for the past 2 days, she started physical therapy prior to her discharge from the main hospital, she ambulated about 60 feet with rolling walker and requiring frequent breaks. PAST MEDICAL HISTORY: 1. Chronic atrial fibrillation. 2. Diabetes. 3. Hypothyroidism. 4. History of hemorrhagic pituitary adenoma. 5. Hyperlipidemia. 6. Gastroesophageal reflux disease. 7. Osteoarthritis. PAST SURGICAL HISTORY: 1. Tonsillectomy. 2. Hysterectomy. 3. Right hip repair. 4. Oral surgery. 5. Lumpectomy on both breasts. 6. Hernia surgery. 7. Right kidney surgery. 8. Hemorrhoidectomy. 9. Bladder surgery with suprapubic catheter placement. 10. Bilateral knee replacements. 11. Cholecystectomy. 12. Salivary gland removal. FAMILY HISTORY: Noncontributory. SOCIAL HISTORY: No alcohol or drug use. The patient lives with . Her daughter and son live close by. ALLERGIES: 1. ADHESIVE TAPE. 2. CYMBALTA. 3. LATEX. 4. MEROPENEM. 5. METFORMIN. 6. PENICILLIN. 7. PHENOBARBITAL. 8. TRAMADOL. MEDICATIONS: 1. Lipitor 40 mg at bedtime daily. 2. Aricept 10 mg daily. 3. Pepcid 20 mg b.i.d. 4. Tricor 145 mg at bedtime. 5. Insulin 15 units at bedtime. 6. Imdur 30 mg daily. 7. Synthroid 125 mcg daily. 8. Promethazine 12.5 mg q.6 hours p.r.n. for nausea or vomiting. 9. Xarelto 15 mg daily. 10. Zoloft 50 mg at bedtime. 11. Aldactone 25 mg daily. 12. Trospium 20 mg b.i.d. REVIEW OF SYSTEMS: GENERAL: The patient denies fever, chills. She is weak due to prolonged hospitalization. HEENT: Negative for headaches. Positive for decreased vision. Negative for sore throat. RESPIRATORY: Negative for cough or wheezing. Negative for respiratory distress. Has oxygen support. CARDIAC: Negative for chest pain. Negative for cyanosis. ABDOMEN: Positive for decreased appetite, negative for nausea or vomiting. Negative for diarrhea or constipation. SKIN: Positive for multiple bruising in upper extremities. NEUROLOGIC: Negative for seizures. PSYCH: Negative for depression or anxiety. PHYSICAL EXAMINATION: VITAL SIGNS: Blood pressure 115/57, temperature 98.3, pulse of 91, respirations of 18, O2 saturation 97% on 2 L. GENERAL: The patient appears chronically ill, not in respiratory distress. Alert, oriented x3. HEENT: Normocephalic, atraumatic. Pupils are equal, reactive to light. NECK: Supple. Negative for lymphadenopathy. CHEST AND LUNGS: Symmetrical expansion, decreased breath sounds due to poor respiratory effort. HEART: Irregularly irregular. Negative for murmur. ABDOMEN: Normoactive bowel sounds. Flat, soft, nontender. Positive for suprapubic catheter, area around has no surrounding erythema or purulent drainage. PSYCH: Appropriate affect and demeanor for age. LAB/IMAGING: Reviewed. ASSESSMENT: 1. Physical deconditioning from prolonged hospitalization secondary to complicated urinary tract infection with sepsis. Ms. Potts was admitted for jail, physical and occupational therapy. 2. Demand ischemia/non ST-segment elevation myocardial infarction. 3. History of severe hypokalemia with hypomagnesemia resulting 2 runs of ventricular fibrillation and torsades. 4. Poor appetite. 5. History of hemorrhagic pituitary adenoma. 6. Hypertension. 7. Diabetes mellitus. 8. Dementia. 9. Recurrent urinary tract infection with suprapubic catheter. PLAN: 1. Prognosis is guarded due to her multiple comorbid condition. She will continue with physical and occupational therapies. Goal is to improve mobility, endurance, gait, strength, and transfer ability. The patient desires to go home. 2. Continue current medication. 3. Glucose monitoring every 12 hours. The patient will continue with present anticoagulation with Xarelto, she was cleared by Neurosurgery. DISPOSITION: Anticipated length of stay, 2-4 weeks. Discharge to home. account manager b2b to assist with discharge planning, may require home health after discharge. CODE STATUS: The patient is a do not resuscitate or do not intubate from previous admission at [facility]. This will be confirmed on this admission. Job ID: [id number]
[2019-05-12] MEDS: Spironolactone 25 MG TAB PO SCH (08:56)
[2019-05-12] MEDS: Rivaroxaban 10 MG TAB PO SCH (08:56)
[2019-05-12] MEDS: Famotidine 20 MG TAB PO SCH ×2 (08:58→21:45)
[2019-05-12] MEDS: Trospium 20 MG TAB PO SCH ×2 (08:58→21:45)
[2019-05-12] MEDS: Lantus 1000 UNITS/10 ML VIAL SC SCH (21:43)
[2019-05-12] MEDS: Fenofibrate Nanocrystallized 145 MG TAB PO SCH (21:45)
[2019-05-12] MEDS: Donepezil HCl 10 MG TAB PO SCH (21:45)
[2019-05-12] MEDS: Atorvastatin Calcium 40 MG TAB PO SCH (21:45)
[2019-05-13] MEDS: Levothyroxine Sodium 50 MCG TAB PO SCH (05:44)
[2019-05-13] MEDS: Rivaroxaban 10 MG TAB PO SCH (08:40)
[2019-05-13] MEDS: Spironolactone 25 MG TAB PO SCH (08:40)
[2019-05-13] MEDS: Famotidine 20 MG TAB PO SCH ×2 (08:41→21:14)
[2019-05-13] MEDS: Trospium 20 MG TAB PO SCH ×2 (08:42→21:14)
[2019-05-13] MEDS: Acetaminophen 325 MG TAB PO PRN (08:47)
[2019-05-13] MEDS: Lantus 1000 UNITS/10 ML VIAL SC SCH (21:13)
[2019-05-13] MEDS: Fenofibrate Nanocrystallized 145 MG TAB PO SCH (21:14)
[2019-05-13] MEDS: Donepezil HCl 10 MG TAB PO SCH (21:14)
[2019-05-13] MEDS: Atorvastatin Calcium 40 MG TAB PO SCH (21:14)
[2019-05-14] MEDS: Hyoscyamine Sulfate SL 0.125 mg Tablet SL PRN (01:18)
[2019-05-14] MEDS: Levothyroxine Sodium 50 MCG TAB PO SCH (05:41)
[2019-05-14] MEDS: Spironolactone 25 MG TAB PO SCH (09:25)
[2019-05-14] MEDS: Famotidine 20 MG TAB PO SCH ×2 (09:25→20:45)
[2019-05-14] MEDS: Rivaroxaban 10 MG TAB PO SCH (09:26)
[2019-05-14] MEDS: Trospium 20 MG TAB PO SCH ×2 (09:26→20:44)
[2019-05-14] MEDS: Atorvastatin Calcium 40 MG TAB PO SCH (20:45)
[2019-05-14] MEDS: Fenofibrate Nanocrystallized 145 MG TAB PO SCH (20:45)
[2019-05-14] MEDS: Donepezil HCl 10 MG TAB PO SCH (20:45)
[2019-05-14] MEDS: Lantus 1000 UNITS/10 ML VIAL SC SCH (21:59)
[2019-05-15] MEDS: Levothyroxine Sodium 50 MCG TAB PO SCH (06:56)
[2019-05-15] MEDS: Rivaroxaban 10 MG TAB PO SCH (09:00)
[2019-05-15] MEDS: Trospium 20 MG TAB PO SCH ×2 (09:01→20:47)
[2019-05-15] MEDS: Famotidine 20 MG TAB PO SCH ×2 (09:01→20:47)
[2019-05-15] MEDS: Spironolactone 25 MG TAB PO SCH (09:01)
[2019-05-15] MEDS: Fenofibrate Nanocrystallized 145 MG TAB PO SCH (20:47)
[2019-05-15] MEDS: Atorvastatin Calcium 40 MG TAB PO SCH (20:47)
[2019-05-15] MEDS: Donepezil HCl 10 MG TAB PO SCH (20:47)
[2019-05-15] MEDS: Lantus 1000 UNITS/10 ML VIAL SC SCH (20:50)
[2019-05-16] MEDS: Levothyroxine Sodium 50 MCG TAB PO SCH (05:29)
[2019-05-16] MEDS: Rivaroxaban 10 MG TAB PO SCH (08:57)
[2019-05-16] MEDS: Trospium 20 MG TAB PO SCH ×2 (08:58→21:28)
[2019-05-16] MEDS: Spironolactone 25 MG TAB PO SCH (08:59)
[2019-05-16] MEDS: Famotidine 20 MG TAB PO SCH ×2 (08:59→21:28)
[2019-05-16] MEDS: Ondansetron ODT 4 MG TAB PO PRN (10:20)
[2019-05-16 11:14] LABS: #Basophils 0.1 thou/uL (0.0-0.2); #Eosinphils 0.1 thou/uL (0.0-0.7); #Lymphocytes 1.8 thou/uL (1.20-3.40); #Monocytes 0.6 thou/uL (0.11-0.59); #Neutrophils 4.6 thou/uL (1.40-6.50); %Basophils 1.1 % (0.0-1.0); %Eosinophils 1.9 % (0.0-10.0); %Lymphocytes 24.5 % (21.0-51.0); %Monocytes 8.8 % (0.0-10.0); %Neutrophils 63.7 % (42.0-75.0); Hemoglobin 11.3 g/dL (12.0-16.0); Mean Corpuscular HGB CONC 32.2 g/dL (32.0-36.0); Mean Corpuscular Hemoglobin 29.8 pg (27.0-31.0); Mean Corpuscular Volume 92.6 fL (78.0-98.0); Mean Platelet Volume 8.7 fL (7.4-10.4); Platelet Count 201 thou/uL (130-400); RBC Distribution Width 12.5 % (11.5-14.5); Red Blood Cell (RBC) Count 3.81 mill/uL (4.20-5.40); White Blood Cell (WBC) Count 7.3 thou/uL (4.8-10.8)
[2019-05-16 11:28] LABS: ALT (SGPT) 11 U/L (8-55); AST (SGOT) 18 U/L (5-34); Albumin 3.8 g/dL (3.4-4.8); Alkaline Phosphatase 62 U/L (40-150); Anion Gap 20 mmol/L (10-20); BUN (Urea Nitrogen) 14 mg/dL (9.8-20.1); Bilirubin, Total 0.5 mg/dL (0.2-1.2); Calc. Creatinine Clearance 27 mL/min (70-130); Calcium 9.5 mg/dL (7.8-10.44); Carbon Dioxide 22 mmol/L (23-31); Chloride 105 mmol/L (98-107); Estimated GFR-MDRD 29; Globulin 2.8 g/dL (2.4-3.5); Glucose 96 mg/dL (83-110); Protein, Total 6.6 g/dL (6.0-8.3); Sodium 143 mmol/L (136-145)
[2019-05-16 12:52] LABS: Clarity Clear (Clear)
[2019-05-16 12:53] LABS: Bilirubin Negative (Negative); Blood, Urine Negative (Negative); Glucose, Urine (Dipstick) Negative (Negative); Leukocyte Trace (Negative); Nitrite Negative (Negative); Protein, Urine (Dipstick) Negative (Neg-Trace); Urobilinogen 0.2 mg/dL (Less than 2)
[2019-05-16 12:56] LABS: RBC/HPF 0-3 HPF (0-3); Squamous Epithelial 0-3 HPF (0-3); WBC/HPF 0-3 HPF (0-3)
[2019-05-16 12:57] LABS: Bacteria/HPF Rare-Few HPF (None Seen); Urine Culture Reflex Yes Yes
[2019-05-16] MEDS ORDERED: Albuterol Sulfate 2.5 mg/3 ml Neb NEB PRN (16:30)
--- NOTE | 2019-05-16 17:36 | PRG ---
DATE OF SERVICE: 05/16/2019 SUBJECTIVE: The patient has not been feeling well prior to her transfer. She has no appetite, has very poor oral intake. She feels weak. This morning she complained of nausea with dizziness while trying to have a bowel movement, required two-person assist for transfer. She felt very sleepy. She is currently off oxygen. Last Friday, she walked 44 feet with physical therapy. Her creatinine is trending up. She has no fever, no chest pain or shortness of breath. OBJECTIVE: VITAL SIGNS: Blood pressure of 113/58, temperature of 98, pulse of 97, respiratory rate of 20, O2 saturation 94% on room air. GENERAL: The patient appears chronically ill appearing, not in respiratory distress, arousable. HEENT: Normocephalic, atraumatic. Dry mucous membrane. NECK: Supple. Negative for lymphadenopathy. CHEST AND LUNGS: Faint expiratory wheezing, no rhonchi, no rales. HEART: Irregularly irregular. No murmur, rubs, or gallops. ABDOMEN: Flat, soft, nontender. Positive for suprapubic catheter, with no erythema or purulent drainage. PSYCH: Appropriate affect and demeanor. LABORATORY DATA: CBC; WBC of 7, hemoglobin of 11.3, hematocrit of 35. CMP; sodium of 143, potassium of 4, chloride of 105, carbon dioxide of 22, creatinine of 1.66, glucose of 96, calcium 9.5, magnesium of 1.6, total bilirubin of 0.5, AST of 18, ALT of 11. UA showed positive for leukocyte esterase, rare few bacteria. ASSESSMENT: 1. Physical deconditioning after prolonged hospitalization secondary to complicated urinary tract infection with sepsis. 2. Demand ischemia/zro-HI-kujhveh elevation myocardial infarction. 3. History of severe hypokalemia with hypomagnesemia resulting to two runs of ventricular fibrillation and torsade, resolved. 4. Poor appetite. 5. Elevated creatinine. 6. History of hemorrhagic pituitary adenoma. 7. Hypertension. 8. Cardiomegaly. 9. Diabetes mellitus. 10. Dementia. 11. Recurrent urinary tract infection. PLAN: 1. Advise the patient to increase fluid intake. Monitor her I and Os. 2. Initiate appetite stimulant with cyproheptadine 4 mg b.i.d. 3. Discontinue spironolactone due to poor oral intake with elevated creatinine. 4. Continue PT and occupational therapy. 5. The patient is do not intubate/do not attempt to resuscitate. Code status was confirmed with relatives. Job ID: [id number]
[2019-05-16] MEDS: Donepezil HCl 10 MG TAB PO SCH (21:28)
[2019-05-16] MEDS: Fenofibrate Nanocrystallized 145 MG TAB PO SCH (21:28)
[2019-05-16] MEDS: Atorvastatin Calcium 40 MG TAB PO SCH (21:28)
[2019-05-16] MEDS: CYPROHEPTADINE 4 MG PO SCH (21:30)
[2019-05-16] MEDS: Lantus 1000 UNITS/10 ML VIAL SC SCH (21:52)
[2019-05-16] MEDS: Albuterol Sulfate 1.25 MG/3 ML NEB NEB SCH (22:23)
[2019-05-17] MEDS: Levothyroxine Sodium 50 MCG TAB PO SCH (06:13)
[2019-05-17] MEDS: Albuterol Sulfate 1.25 MG/3 ML NEB NEB SCH ×3 (06:14→23:34)
[2019-05-17] MEDS: Rivaroxaban 10 MG TAB PO SCH (09:41)
[2019-05-17] MEDS: Ondansetron ODT 4 MG TAB PO PRN (09:41)
[2019-05-17] MEDS: Trospium 20 MG TAB PO SCH ×2 (09:42→21:20)
[2019-05-17] MEDS: Famotidine 20 MG TAB PO SCH ×2 (09:43→21:18)
[2019-05-17] MEDS: Docusate 100 MG CAP PO SCH (09:43)
[2019-05-17] MEDS: CYPROHEPTADINE 4 MG PO SCH ×2 (09:44→21:19)
[2019-05-17] MEDS: HYDROcodone/Acetaminophen 10/325 mg Tablet PO PRN (13:55)
[2019-05-17] MEDS: HumaLOG 300 UNITS/3 ML VIAL SC PRN (18:29)
[2019-05-17] MEDS: Fenofibrate Nanocrystallized 145 MG TAB PO SCH (21:17)
[2019-05-17] MEDS: Atorvastatin Calcium 40 MG TAB PO SCH (21:17)
[2019-05-17] MEDS: Donepezil HCl 10 MG TAB PO SCH (21:18)
[2019-05-18] MEDS: Levothyroxine Sodium 50 MCG TAB PO SCH (06:32)
[2019-05-18] MEDS: Albuterol Sulfate 1.25 MG/3 ML NEB NEB SCH ×3 (06:32→22:34)
[2019-05-18] MEDS: HYDROcodone/Acetaminophen 10/325 mg Tablet PO PRN (07:28)
[2019-05-18] MEDS: Docusate 100 MG CAP PO SCH (08:35)
[2019-05-18] MEDS: Famotidine 20 MG TAB PO SCH ×2 (08:35→20:25)
[2019-05-18] MEDS: Trospium 20 MG TAB PO SCH ×2 (08:36→22:36)
[2019-05-18] MEDS: Rivaroxaban 10 MG TAB PO SCH (08:36)
[2019-05-18] MEDS: CYPROHEPTADINE 4 MG PO SCH (08:41)
[2019-05-18] MEDS: Atorvastatin Calcium 40 MG TAB PO SCH (20:24)
[2019-05-18] MEDS: Donepezil HCl 10 MG TAB PO SCH (20:25)
[2019-05-18] MEDS: Cyproheptadine 4 MG TAB PO SCH (20:26)
[2019-05-18] MEDS: Fenofibrate Nanocrystallized 145 MG TAB PO SCH (22:35)
[2019-05-19] MEDS: Levothyroxine Sodium 50 MCG TAB PO SCH (06:47)
[2019-05-19] MEDS: Albuterol Sulfate 1.25 MG/3 ML NEB NEB SCH ×3 (06:47→22:33)
[2019-05-19] MEDS: Rivaroxaban 10 MG TAB PO SCH (10:17)
[2019-05-19] MEDS: Docusate 100 MG CAP PO SCH (10:17)
[2019-05-19] MEDS: Famotidine 20 MG TAB PO SCH ×2 (10:17→21:28)
[2019-05-19] MEDS: Trospium 20 MG TAB PO SCH ×2 (10:18→21:29)
[2019-05-19] MEDS: Cyproheptadine 4 MG TAB PO SCH ×2 (10:19→21:29)
[2019-05-19] MEDS: Acetaminophen 325 MG TAB PO PRN (10:24)
[2019-05-19] MEDS: Fenofibrate Nanocrystallized 145 MG TAB PO SCH (21:29)
[2019-05-19] MEDS: Atorvastatin Calcium 40 MG TAB PO SCH (21:29)
[2019-05-19] MEDS: Donepezil HCl 10 MG TAB PO SCH (21:30)
[2019-05-20] MEDS: Levothyroxine Sodium 50 MCG TAB PO SCH (06:07)
[2019-05-20] MEDS: Albuterol Sulfate 1.25 MG/3 ML NEB NEB SCH ×3 (06:07→23:15)
[2019-05-20] MEDS: Trospium 20 MG TAB PO SCH ×3 (09:26→21:43)
[2019-05-20] MEDS: Rivaroxaban 10 MG TAB PO SCH ×2 (09:26→10:09)
[2019-05-20] MEDS: Famotidine 20 MG TAB PO SCH ×3 (09:26→21:44)
[2019-05-20] MEDS: Docusate 100 MG CAP PO SCH ×2 (09:26→10:09)
[2019-05-20] MEDS: Cyproheptadine 4 MG TAB PO SCH ×3 (09:26→21:43)
[2019-05-20 10:42] LABS: #Basophils 0.1 thou/uL (0.0-0.2); #Eosinphils 0.2 thou/uL (0.0-0.7); #Monocytes 0.6 thou/uL (0.11-0.59); #Neutrophils 3.7 thou/uL (1.40-6.50); %Basophils 1.7 % (0.0-1.0); %Eosinophils 3.5 % (0.0-10.0); %Lymphocytes 30.5 % (21.0-51.0); %Monocytes 8.9 % (0.0-10.0); %Neutrophils 55.5 % (42.0-75.0); Hemoglobin 11.7 g/dL (12.0-16.0); Mean Corpuscular HGB CONC 32.3 g/dL (32.0-36.0); Mean Corpuscular Hemoglobin 29.4 pg (27.0-31.0); Mean Corpuscular Volume 91.2 fL (78.0-98.0); Mean Platelet Volume 8.7 fL (7.4-10.4); Platelet Count 217 thou/uL (130-400); RBC Distribution Width 12.1 % (11.5-14.5); Red Blood Cell (RBC) Count 3.99 mill/uL (4.20-5.40); White Blood Cell (WBC) Count 6.6 thou/uL (4.8-10.8)
[2019-05-20 11:08] LABS: ALT (SGPT) 8 U/L (8-55); AST (SGOT) 14 U/L (5-34); Albumin 3.8 g/dL (3.4-4.8); Alkaline Phosphatase 53 U/L (40-150); Anion Gap 19 mmol/L (10-20); BUN (Urea Nitrogen) 16 mg/dL (9.8-20.1); Bilirubin, Total 0.8 mg/dL (0.2-1.2); Calc. Creatinine Clearance 27 mL/min (70-130); Calcium 9.7 mg/dL (7.8-10.44); Carbon Dioxide 25 mmol/L (23-31); Chloride 102 mmol/L (98-107); Estimated GFR-MDRD 29; Globulin 2.8 g/dL (2.4-3.5); Glucose 104 mg/dL (83-110); Potassium 4.1 mmol/L (3.5-5.1); Protein, Total 6.6 g/dL (6.0-8.3); Sodium 142 mmol/L (136-145)
--- NOTE | 2019-05-20 12:54 | RAD ---
AP PORTABLE CHEST: 05/20/2019 0915 HOURS COMPARISON: Study done at [facility] on 04/28/2019. FINDINGS: Mild cardiomegaly is no different than before. There is no vascular congestion or edema. The lungs are clear. Dense mitral annulus calcification is noted. IMPRESSION: No acute thoracic findings. POS: [facility]
--- NOTE | 2019-05-20 12:58 | CT ---
CT BRAIN: 05/20/2019 COMPARISON: Prior exam done at [facility] on 04/28/2019. FINDINGS: There has been no significant interval change. Diffuse moderately severe atrophy with moderate compe nsatory dilatation of the ventricles is present, as usual. Patchy deep white matter hypolucency is p resent, particularly in the right parietal occipital area, consistent with chronic microvascular isch emia. The appearance is unchanged over time, and there is no evidence of acute stroke. There is no sign of parenchymal mass or edema. Some prior scans have noted a suprasellar/sellar mass, but that i s not easily apparent on these images. The skull appears normal. The visible paranasal sinuses and mastoid air cells are clear. IMPRESSION: Atrophy and chronic ischemic changes. Exam no different than last month's study. POS: [facility]
[2019-05-20] MEDS: Ondansetron ODT 4 MG TAB PO PRN (14:51)
[2019-05-20] MEDS: Donepezil HCl 10 MG TAB PO SCH (21:43)
[2019-05-20] MEDS: Fenofibrate Nanocrystallized 145 MG TAB PO SCH (21:43)
[2019-05-20] MEDS: Atorvastatin Calcium 40 MG TAB PO SCH (21:44)
[2019-05-21] MEDS: Levothyroxine Sodium 50 MCG TAB PO SCH (05:37)
[2019-05-21] MEDS: Albuterol Sulfate 1.25 MG/3 ML NEB NEB SCH ×3 (06:23→23:26)
[2019-05-21] MEDS: Rivaroxaban 10 MG TAB PO SCH (09:25)
[2019-05-21] MEDS: Trospium 20 MG TAB PO SCH ×2 (09:26→21:55)
[2019-05-21] MEDS: Cyproheptadine 4 MG TAB PO SCH ×2 (09:27→21:54)
[2019-05-21] MEDS: Famotidine 20 MG TAB PO SCH ×2 (09:28→21:54)
[2019-05-21] MEDS: Docusate 100 MG CAP PO SCH (09:28)
[2019-05-21] MEDS: Fenofibrate Nanocrystallized 145 MG TAB PO SCH (21:54)
[2019-05-21] MEDS: Atorvastatin Calcium 40 MG TAB PO SCH (21:54)
[2019-05-21] MEDS: Donepezil HCl 10 MG TAB PO SCH (21:54)
[2019-05-22] MEDS: Levothyroxine Sodium 50 MCG TAB PO SCH (05:59)
[2019-05-22] MEDS: Albuterol Sulfate 1.25 MG/3 ML NEB NEB SCH ×3 (06:03→23:01)
[2019-05-22] MEDS: Rivaroxaban 10 MG TAB PO SCH (09:27)
[2019-05-22] MEDS: Famotidine 20 MG TAB PO SCH ×2 (09:28→21:15)
[2019-05-22] MEDS: Trospium 20 MG TAB PO SCH ×2 (09:29→21:14)
[2019-05-22] MEDS: Docusate 100 MG CAP PO SCH (09:29)
[2019-05-22] MEDS: Cyproheptadine 4 MG TAB PO SCH ×2 (09:29→21:14)
[2019-05-22] MEDS: Ondansetron ODT 4 MG TAB PO PRN (13:21)
[2019-05-22] MEDS: Atorvastatin Calcium 40 MG TAB PO SCH (21:14)
[2019-05-22] MEDS: Fenofibrate Nanocrystallized 145 MG TAB PO SCH (21:14)
[2019-05-22] MEDS: Donepezil HCl 10 MG TAB PO SCH (21:15)
[2019-05-23] MEDS: Levothyroxine Sodium 50 MCG TAB PO SCH (06:33)
[2019-05-23] MEDS: Albuterol Sulfate 1.25 MG/3 ML NEB NEB SCH ×3 (06:34→22:50)
[2019-05-23] MEDS: Rivaroxaban 10 MG TAB PO SCH (09:05)
[2019-05-23] MEDS: Cyproheptadine 4 MG TAB PO SCH ×2 (09:06→20:23)
[2019-05-23] MEDS: Famotidine 20 MG TAB PO SCH (09:07)
[2019-05-23] MEDS: Trospium 20 MG TAB PO SCH ×2 (09:07→20:23)
[2019-05-23] MEDS: Docusate 100 MG CAP PO SCH (09:07)
[2019-05-23] MEDS: HumaLOG 300 UNITS/3 ML VIAL SC PRN (17:36)
[2019-05-23] MEDS: Atorvastatin Calcium 40 MG TAB PO SCH (20:23)
[2019-05-23] MEDS: Donepezil HCl 10 MG TAB PO SCH (20:23)
[2019-05-23] MEDS: Fenofibrate Nanocrystallized 145 MG TAB PO SCH (20:23)
[2019-05-24] MEDS: Levothyroxine Sodium 50 MCG TAB PO SCH (05:41)
[2019-05-24] MEDS: Albuterol Sulfate 1.25 MG/3 ML NEB NEB SCH ×3 (06:00→23:28)
[2019-05-24] MEDS: Rivaroxaban 10 MG TAB PO SCH (08:11)
[2019-05-24] MEDS: Cyproheptadine 4 MG TAB PO SCH ×2 (08:12→20:59)
[2019-05-24] MEDS: Famotidine 20 MG TAB PO SCH (08:13)
[2019-05-24] MEDS: Trospium 20 MG TAB PO SCH ×2 (08:13→20:59)
[2019-05-24] MEDS: Docusate 100 MG CAP PO SCH (08:14)
[2019-05-24] MEDS: HumaLOG 300 UNITS/3 ML VIAL SC PRN (12:14)
[2019-05-24] MEDS: Ondansetron ODT 4 MG TAB PO PRN (14:04)
[2019-05-24 16:37] LABS: Hemoglobin 10.2 g/dL (12.0-16.0); Platelet Count 269 thou/uL (130-400)
[2019-05-24] MEDS: Fenofibrate Nanocrystallized 145 MG TAB PO SCH (20:59)
[2019-05-24] MEDS: Atorvastatin Calcium 40 MG TAB PO SCH (21:00)
[2019-05-24] MEDS: Donepezil HCl 10 MG TAB PO SCH (21:00)
[2019-05-25] MEDS: Levothyroxine Sodium 50 MCG TAB PO SCH (05:39)
[2019-05-25] MEDS: Albuterol Sulfate 1.25 MG/3 ML NEB NEB SCH ×3 (06:03→22:37)
[2019-05-25] MEDS: Trospium 20 MG TAB PO SCH ×2 (08:54→22:25)
[2019-05-25] MEDS: Famotidine 20 MG TAB PO SCH (08:54)
[2019-05-25] MEDS: Cyproheptadine 4 MG TAB PO SCH ×2 (08:54→22:25)
[2019-05-25] MEDS: Docusate 100 MG CAP PO SCH (08:54)
[2019-05-25] MEDS: Rivaroxaban 10 MG TAB PO SCH (08:55)
[2019-05-25] MEDS: HYDROcodone/Acetaminophen 10/325 mg Tablet PO PRN ×2 (09:58→16:03)
[2019-05-25] MEDS: HumaLOG 300 UNITS/3 ML VIAL SC PRN (16:53)
[2019-05-25] MEDS: Donepezil HCl 10 MG TAB PO SCH (22:25)
[2019-05-25] MEDS: Fenofibrate Nanocrystallized 145 MG TAB PO SCH (22:25)
[2019-05-25] MEDS: Atorvastatin Calcium 40 MG TAB PO SCH (22:26)
[2019-05-25] MEDS: Acetaminophen 325 MG TAB PO PRN (22:36)
[2019-05-26] MEDS: Levothyroxine Sodium 50 MCG TAB PO SCH (05:19)
[2019-05-26] MEDS: Acetaminophen 325 MG TAB PO PRN (05:20)
[2019-05-26 05:50] LABS: Hemoglobin 10.2 g/dL (12.0-16.0); Platelet Count 266 thou/uL (130-400)
[2019-05-26] MEDS: Ondansetron ODT 4 MG TAB PO PRN (06:02)
[2019-05-26] MEDS: Albuterol Sulfate 1.25 MG/3 ML NEB NEB SCH ×3 (06:04→22:41)
[2019-05-26] MEDS: Rivaroxaban 10 MG TAB PO SCH (10:00)
[2019-05-26] MEDS: Trospium 20 MG TAB PO SCH ×2 (10:00→22:26)
[2019-05-26] MEDS: Docusate 100 MG CAP PO SCH (10:00)
[2019-05-26] MEDS: Cyproheptadine 4 MG TAB PO SCH ×2 (10:02→22:26)
[2019-05-26] MEDS: Famotidine 20 MG TAB PO SCH (10:02)
[2019-05-26] MEDS: Atorvastatin Calcium 40 MG TAB PO SCH (22:26)
[2019-05-26] MEDS: Fenofibrate Nanocrystallized 145 MG TAB PO SCH (22:26)
[2019-05-26] MEDS: Donepezil HCl 10 MG TAB PO SCH (22:27)
[2019-05-27] MEDS: Levothyroxine Sodium 50 MCG TAB PO SCH (06:09)
[2019-05-27] MEDS: Albuterol Sulfate 1.25 MG/3 ML NEB NEB SCH ×3 (06:09→23:04)
[2019-05-27] MEDS ORDERED: Bisacodyl 10 MG SUPP PR PRN (08:32)
[2019-05-27] MEDS: Rivaroxaban 10 MG TAB PO SCH (09:49)
[2019-05-27] MEDS: Polyethylene Glycol 3350 17 GM Packet PO PRN (09:50)
[2019-05-27] MEDS: Famotidine 20 MG TAB PO SCH (09:50)
[2019-05-27] MEDS: Cyproheptadine 4 MG TAB PO SCH ×2 (09:50→22:38)
[2019-05-27] MEDS: Trospium 20 MG TAB PO SCH ×2 (09:50→22:39)
[2019-05-27] MEDS: Docusate 100 MG CAP PO SCH (09:50)
[2019-05-27] MEDS: Ondansetron ODT 4 MG TAB PO PRN ×2 (11:43→17:26)
[2019-05-27] MEDS ORDERED: Fleet Enema 133 ML BOT ONE (15:52)
[2019-05-27] MEDS: Acetaminophen 325 MG TAB PO PRN ×2 (17:18→23:05)
[2019-05-27] MEDS: HumaLOG 300 UNITS/3 ML VIAL SC PRN (17:34)
[2019-05-27 18:24] LABS: Anion Gap 17 mmol/L (10-20); BUN (Urea Nitrogen) 18 mg/dL (9.8-20.1); Calc. Creatinine Clearance 27 mL/min (70-130); Carbon Dioxide 23 mmol/L (23-31); Chloride 103 mmol/L (98-107); Estimated GFR-MDRD 29; Glucose 156 mg/dL (83-110); Potassium 4.2 mmol/L (3.5-5.1); Sodium 139 mmol/L (136-145)
[2019-05-27 18:25] LABS: #Basophils 0.1 thou/uL (0.0-0.2); #Eosinphils 0.1 thou/uL (0.0-0.7); #Lymphocytes 0.9 thou/uL (1.20-3.40); #Monocytes 0.7 thou/uL (0.11-0.59); #Neutrophils 9.3 thou/uL (1.40-6.50); %Eosinophils 0.9 % (0.0-10.0); %Lymphocytes 8.4 % (21.0-51.0); %Neutrophils 83.7 % (42.0-75.0); Hemoglobin 11.2 g/dL (12.0-16.0); Mean Corpuscular HGB CONC 32.5 g/dL (32.0-36.0); Mean Corpuscular Hemoglobin 29.6 pg (27.0-31.0); Mean Corpuscular Volume 91.1 fL (78.0-98.0); Mean Platelet Volume 8.6 fL (7.4-10.4); Platelet Count 314 thou/uL (130-400); RBC Distribution Width 12.9 % (11.5-14.5); Red Blood Cell (RBC) Count 3.78 mill/uL (4.20-5.40); White Blood Cell (WBC) Count 11.1 thou/uL (4.8-10.8)
[2019-05-27 18:33] LABS: Clarity Clear (Clear); Leukocyte Negative (Negative); Nitrite Negative (Negative); Protein, Urine (Dipstick) 30 mg/dL (Neg-Trace)
[2019-05-27 18:34] LABS: Bacteria/HPF Rare-Few HPF (None Seen); Bilirubin Negative (Negative); Blood, Urine Negative (Negative); Glucose, Urine (Dipstick) Negative (Negative); RBC/HPF 0-3 HPF (0-3); Squamous Epithelial 0-3 HPF (0-3); WBC/HPF 0-3 HPF (0-3)
[2019-05-27] MEDS: Hyoscyamine Sulfate SL 0.125 mg Tablet SL PRN (22:31)
[2019-05-27] MEDS: Atorvastatin Calcium 40 MG TAB PO SCH (22:38)
[2019-05-27] MEDS: Fenofibrate Nanocrystallized 145 MG TAB PO SCH (22:39)
[2019-05-27] MEDS: Donepezil HCl 10 MG TAB PO SCH (22:39)
[2019-05-28] MEDS: HYDROcodone/Acetaminophen 10/325 mg Tablet PO PRN ×2 (02:07→23:15)
[2019-05-28] MEDS: Levothyroxine Sodium 50 MCG TAB PO SCH (05:34)
[2019-05-28] MEDS: Albuterol Sulfate 1.25 MG/3 ML NEB NEB SCH ×3 (06:00→22:15)
[2019-05-28 06:09] LABS: Platelet Count 318 thou/uL (130-400)
[2019-05-28] MEDS: Rivaroxaban 10 MG TAB PO SCH (08:23)
[2019-05-28] MEDS: Trospium 20 MG TAB PO SCH ×2 (08:24→21:37)
[2019-05-28] MEDS: Docusate 100 MG CAP PO SCH (08:24)
[2019-05-28] MEDS: Famotidine 20 MG TAB PO SCH (08:25)
[2019-05-28] MEDS: Cyproheptadine 4 MG TAB PO SCH ×2 (08:25→21:37)
[2019-05-28] MEDS: Ondansetron ODT 4 MG TAB PO PRN (17:24)
--- NOTE | 2019-05-28 20:02 | PRG ---
DATE OF SERVICE: 05/21/2019 SUBJECTIVE: Over this past weekend, the patient's condition gradually improved. She started eating, she still has some nausea. Yesterday, she worked with Physical and Occupational Therapy, she walked 80 feet using rolling walker. She refused physical therapy last week. Today, she denies any complaints. OBJECTIVE: VITAL SIGNS: Blood pressure of 127/59, temperature of 98.2, pulse of 87, RR of 16, O2 saturation 98% on room air. GENERAL: The patient is alert, not in distress. HEENT: Normocephalic, atraumatic. Wet mucous membrane. NECK: Supple. Negative for lymphadenopathy. CHEST AND LUNGS: Symmetrical expansion, faint expiratory wheezing. No rhonchi. No rales. HEART: Irregularly irregular. No murmur, rubs, or gallops. ABDOMEN: Flat, soft, nontender. Positive for suprapubic catheter with no erythema or purulent drainage. PSYCH: Appropriate affect and demeanor. LABORATORY DATA: Comprehensive metabolic panel; sodium of 142, potassium of 4.1, chloride of 102, carbon dioxide of 25, BUN of 16, creatinine of 1.65, GFR of 29, glucose of 104, calcium of 9.7. CBC; WBC of 6, hemoglobin of 11.7, hematocrit of 36.4, platelet count of 217. Urine culture collected on 05/16/2019 was negative. ASSESSMENT: 1. Physical deconditioning after prolonged hospitalization secondary to complicated urinary tract infection with sepsis. 2. Worsening mental status, gradually improving. 3. Demand ischemia/bmf-GT-fjwpcev elevation myocardial infarction. 4. History of severe hypokalemia with hypomagnesemia resulting to 2 runs of VFib and torsades. 5. Poor appetite. 6. Elevated creatinine, stable. 7. History of hemorrhagic pituitary adenoma. 8. Hypertension. 9. Cardiomegaly. 10. Diabetes mellitus, controlled. 11. Dementia. 12. Recurrent urinary tract infection. PLAN: 1. Continue physical and occupational therapy. 2. Continue to encourage the patient to increase fluid intake. We discontinued her diuretics due to poor oral intake and elevated creatinine. 3. Code status, DNI/DNAR. Job ID: [id number]
--- NOTE | 2019-05-28 20:17 | PRG ---
DATE OF SERVICE: 05/28/2019 SUBJECTIVE: The patient had severe constipation associated with abdominal discomfort, nausea, and vomiting yesterday. Nurse tried stool softeners, laxatives, suppositories and enema with small bowel movement, she ran fever of 100.3 last night. She was tolerating liquids. Morning, she had a good bowel movement. This afternoon, she is more alert but still has very poor appetite, she is complaining of nausea after one or two bites. She required a two-person assist with transfers. She walked four steps today using rolling walker. OBJECTIVE: VITAL SIGNS: Blood pressure of 100/59, temperature of 98, pulse of 99, RR of 16, O2 saturation 94% on room air. GENERAL: The patient is awake, not in respiratory distress, afebrile. HEENT: Normocephalic, atraumatic. Pupils equally reactive to light. NECK: Supple. Negative for lymphadenopathy. CHEST AND LUNGS: Decreased lung expansion, decreased breath sounds. HEART: Irregularly irregular. No murmur, rubs, or gallops. ABDOMEN: Flat, soft, nontender. Positive for suprapubic catheter. PSYCHIATRY: Appropriate affect and demeanor. LABORATORY DATA: Labs on 05/27/2019; WBC of 11, hemoglobin of 11.2, hematocrit of 34, platelet count of 314. BMP; sodium of 139, potassium of 4.2, chloride of 103, carbon dioxide of 23, BUN of 18, and creatinine of 1.66. ASSESSMENT: 1. Physical deconditioning after prolonged hospitalization secondary to complicated urinary tract infection with sepsis. 2. Poor appetite. 3. Chronic nausea. 4. Demand ischemia, non ST-segment elevation myocardial infarction. 5. History of severe hypokalemia with hypomagnesemia resulting to 2 runs of ventricular fibrillation and torsade. 6. Acute renal insufficiency. 7. History of hemorrhagic pituitary adenoma. 8. Hypertension. 9. Cardiomegaly. 10. Diabetes mellitus. 11. Dementia. 12. Recurrent urinary tract infection. PLAN: The patient has poor prognosis to return to her baseline status, she is still requiring 2 to 3 person assist with transfers, she is declining overall with her health condition. We may need to place her on palliative care if her condition continued to decline. She will resume physical and occupational therapy next week. We will also initiate Zofran before her meals to relieve nausea. She is on p.r.n. medications for constipation. Condition guarded. Code status, DNI/DNAR. Job ID: [id number]
[2019-05-28] MEDS: Fenofibrate Nanocrystallized 145 MG TAB PO SCH (21:37)
[2019-05-28] MEDS: Atorvastatin Calcium 40 MG TAB PO SCH (21:38)
[2019-05-28] MEDS: Donepezil HCl 10 MG TAB PO SCH (21:38)
[2019-05-29] MEDS: Levothyroxine Sodium 50 MCG TAB PO SCH (06:06)
[2019-05-29] MEDS: Albuterol Sulfate 1.25 MG/3 ML NEB NEB SCH ×3 (06:11→23:11)
[2019-05-29] MEDS: Rivaroxaban 10 MG TAB PO SCH (10:05)
[2019-05-29] MEDS: Polyethylene Glycol 3350 17 GM Packet PO PRN (10:05)
[2019-05-29] MEDS: Docusate 100 MG CAP PO SCH (10:07)
[2019-05-29] MEDS: Trospium 20 MG TAB PO SCH ×2 (10:07→20:56)
[2019-05-29] MEDS: Cyproheptadine 4 MG TAB PO SCH ×2 (10:07→20:56)
[2019-05-29] MEDS: Ondansetron ODT 4 MG TAB PO PRN (10:14)
[2019-05-29] MEDS: Donepezil HCl 10 MG TAB PO SCH (20:56)
[2019-05-29] MEDS: Fenofibrate Nanocrystallized 145 MG TAB PO SCH (20:56)
[2019-05-29] MEDS: Atorvastatin Calcium 40 MG TAB PO SCH (20:56)
[2019-05-30] MEDS: Albuterol Sulfate 1.25 MG/3 ML NEB NEB SCH ×3 (06:18→22:05)
[2019-05-30] MEDS: Levothyroxine Sodium 50 MCG TAB PO SCH (06:18)
[2019-05-30 06:20] LABS: Platelet Count 305 thou/uL (130-400)
[2019-05-30 06:26] LABS: Critical Call w/ Read Back NOT CALLED
[2019-05-30] MEDS: Rivaroxaban 10 MG TAB PO SCH (10:16)
[2019-05-30] MEDS: Docusate 100 MG CAP PO SCH (10:16)
[2019-05-30] MEDS: Trospium 20 MG TAB PO SCH ×2 (10:17→21:17)
[2019-05-30] MEDS: Cyproheptadine 4 MG TAB PO SCH ×2 (10:17→21:17)
[2019-05-30] MEDS: Polyethylene Glycol 3350 17 GM Packet PO PRN (10:28)
[2019-05-30] MEDS: Ondansetron ODT 4 MG TAB PO PRN (13:12)
[2019-05-30] MEDS: Donepezil HCl 10 MG TAB PO SCH (21:17)
[2019-05-30] MEDS: Fenofibrate Nanocrystallized 145 MG TAB PO SCH (21:17)
[2019-05-30] MEDS: Atorvastatin Calcium 40 MG TAB PO SCH (21:17)
[2019-05-31] MEDS: Albuterol Sulfate 1.25 MG/3 ML NEB NEB SCH ×3 (06:22→23:19)
[2019-05-31] MEDS: Levothyroxine Sodium 50 MCG TAB PO SCH (06:24)
--- NOTE | 2019-05-31 08:39 | PRG ---
DATE OF SERVICE: 05/18/2019 SUBJECTIVE: Mrs. Potts is an 89-year-old white female, admitted for physical and occupational therapy after prolonged hospitalization secondary to complicated UTI with sepsis. For the past 3 days, the patient has very poor appetite. She had episodes of nausea, vomiting, drowsiness, and sleeping a lot. She is requiring 3-person assist for transfers. Her vital signs are within normal limits. The patient is off oxygen. CBC and basic metabolic panel were both within normal limits as well. OBJECTIVE: VITAL SIGNS: Blood pressure of 114/64, temperature of 98.1, pulse of 89, RR of 20, O2 saturation 93% on room air. GENERAL: The patient is drowsy, but arousable, undiscernible speech. HEENT: Normocephalic, atraumatic. Dry mucous membrane. NECK: Supple. Negative for lymphadenopathy. CHEST AND LUNGS: Decreased breath sounds. No rhonchi, no rales. HEART: Irregularly irregular. No murmur, rubs, or gallops. ABDOMEN: Flat, soft, nontender. Positive for suprapubic catheter. No erythema or purulent drainage around. PSYCH: Not assessed. LABORATORY DATA: Reviewed. ASSESSMENT: 1. Worsening mental status. 2. Physical deconditioning after prolonged hospitalization secondary to complicated urinary tract infection with sepsis. 3. Poor oral intake. 4. Demand ischemia/ivm-XJ-xmzyiyn elevation myocardial infarction. 5. History of severe hypokalemia with hypomagnesemia resulting to 2 runs of ventricular fibrillation and torsades, resolved. 6. Elevated creatinine. 7. History of hemorrhagic pituitary adenoma. 8. Hypertension. 9. Cardiomegaly. 10. Diabetes mellitus. 11. Dementia. 12. Hypothyroidism. 13. Recurrent urinary tract infections. PLAN: 1. I discussed with her daughter, Tori, about the patient's condition. I recommend starting IV fluids if the patient continues to decline with her oral intake; however, she refused and wishes that we make her mom comfortable. The plan is to put her on palliative care if her condition continued to worsen. Condition, guarded. 2. Code status, DNAR/DNI. Job ID: [id number]
[2019-05-31] MEDS: Ondansetron ODT 4 MG TAB PO PRN (08:50)
[2019-05-31] MEDS: Docusate 100 MG CAP PO SCH (08:51)
[2019-05-31] MEDS: Rivaroxaban 10 MG TAB PO SCH (08:52)
[2019-05-31] MEDS: Trospium 20 MG TAB PO SCH ×2 (08:53→20:56)
[2019-05-31] MEDS: Cyproheptadine 4 MG TAB PO SCH ×2 (08:54→20:56)
[2019-05-31] MEDS: HYDROcodone/Acetaminophen 10/325 mg Tablet PO PRN (09:57)
[2019-05-31 10:08] VITALS: BMI 27.1
[2019-05-31] MEDS: Fenofibrate Nanocrystallized 145 MG TAB PO SCH (20:56)
[2019-05-31] MEDS: Atorvastatin Calcium 40 MG TAB PO SCH (20:56)
[2019-05-31] MEDS: Donepezil HCl 10 MG TAB PO SCH (20:56)
[2019-06-01] MEDS: Levothyroxine Sodium 50 MCG TAB PO SCH (06:01)
[2019-06-01] MEDS: Albuterol Sulfate 1.25 MG/3 ML NEB NEB SCH ×3 (06:03→23:58)
[2019-06-01 06:25] LABS: Hemoglobin 11.4 g/dL (12.0-16.0); Platelet Count 348 thou/uL (130-400)
[2019-06-01] MEDS: Ondansetron ODT 4 MG TAB PO PRN (09:14)
[2019-06-01] MEDS: Rivaroxaban 10 MG TAB PO SCH (09:14)
[2019-06-01] MEDS: Cyproheptadine 4 MG TAB PO SCH ×2 (09:15→20:47)
[2019-06-01] MEDS: Docusate 100 MG CAP PO SCH (09:16)
[2019-06-01] MEDS: Trospium 20 MG TAB PO SCH ×2 (09:18→20:47)
[2019-06-01] MEDS: HYDROcodone/Acetaminophen 10/325 mg Tablet PO PRN (09:19)
[2019-06-01] MEDS: Atorvastatin Calcium 40 MG TAB PO SCH (20:47)
[2019-06-01] MEDS: Fenofibrate Nanocrystallized 145 MG TAB PO SCH (20:47)
[2019-06-01] MEDS: Donepezil HCl 10 MG TAB PO SCH (20:47)
[2019-06-02] MEDS: Acetaminophen 325 MG TAB PO PRN (00:03)
[2019-06-02] MEDS: Albuterol Sulfate 1.25 MG/3 ML NEB NEB SCH ×3 (06:12→23:36)
[2019-06-02] MEDS: Levothyroxine Sodium 50 MCG TAB PO SCH (06:12)
[2019-06-02] MEDS: Docusate 100 MG CAP PO SCH (09:50)
[2019-06-02] MEDS: Polyethylene Glycol 3350 17 GM Packet PO PRN (09:50)
[2019-06-02] MEDS: Rivaroxaban 10 MG TAB PO SCH (09:50)
[2019-06-02] MEDS: Trospium 20 MG TAB PO SCH ×2 (09:51→21:47)
[2019-06-02] MEDS: Cyproheptadine 4 MG TAB PO SCH ×2 (09:51→21:48)
[2019-06-02] MEDS: Ondansetron ODT 4 MG TAB PO PRN (10:03)
[2019-06-02] MEDS: Sodium Chloride 0.45% 1,000 ML IV SCH (11:13)
[2019-06-02] MEDS: Fenofibrate Nanocrystallized 145 MG TAB PO SCH (21:47)
[2019-06-02] MEDS: Atorvastatin Calcium 40 MG TAB PO SCH (21:48)
[2019-06-02] MEDS: Donepezil HCl 10 MG TAB PO SCH (21:48)
[2019-06-03 05:34] LABS: Hemoglobin 10.9 g/dL (12.0-16.0); Platelet Count 319 thou/uL (130-400)
[2019-06-03] MEDS: Albuterol Sulfate 1.25 MG/3 ML NEB NEB SCH ×3 (06:21→22:41)
[2019-06-03] MEDS: Levothyroxine Sodium 50 MCG TAB PO SCH ×2 (06:23→06:30)
[2019-06-03] MEDS: Sodium Chloride 0.45% 1,000 ML IV SCH (06:32)
[2019-06-03] MEDS: Megestrol Acetate 40 MG TAB PO SCH (10:32)
[2019-06-03] MEDS: Docusate 100 MG CAP PO SCH (10:33)
[2019-06-03] MEDS: Trospium 20 MG TAB PO SCH ×2 (10:33→21:40)
[2019-06-03] MEDS: Rivaroxaban 10 MG TAB PO SCH (10:33)
[2019-06-03] MEDS: HumaLOG 300 UNITS/3 ML VIAL SC PRN (15:15)
[2019-06-03] MEDS: Atorvastatin Calcium 40 MG TAB PO SCH (21:40)
[2019-06-03] MEDS: Donepezil HCl 10 MG TAB PO SCH (21:40)
[2019-06-03] MEDS: Fenofibrate Nanocrystallized 145 MG TAB PO SCH (21:40)
[2019-06-04] MEDS: Sodium Chloride 0.45% 1,000 ML IV SCH ×3 (03:01→23:26)
[2019-06-04] MEDS: Levothyroxine Sodium 50 MCG TAB PO SCH (05:59)
[2019-06-04] MEDS: Albuterol Sulfate 1.25 MG/3 ML NEB NEB SCH ×3 (06:00→23:24)
[2019-06-04] MEDS: Rivaroxaban 10 MG TAB PO SCH (08:26)
[2019-06-04] MEDS: Trospium 20 MG TAB PO SCH ×2 (08:27→21:34)
[2019-06-04] MEDS: Docusate 100 MG CAP PO SCH (08:28)
[2019-06-04] MEDS: Megestrol Acetate 40 MG TAB PO SCH (08:28)
--- NOTE | 2019-06-04 20:15 | PRG ---
DATE OF SERVICE: 06/04/2019 SUBJECTIVE: The patient is having cycles of generalized weakness with extreme fatigue, decreased appetite, and poor oral intake with intermittent episodes of good days described as more alert, responsive, with some participated with physical therapy. We started IV fluids 2 days prior as requested by her granddaughter due to poor oral intake. Also, we started her on Megace to boost her appetite. Today, she ate 1/4 of her lunch tray. She still wants to eat, but felt nauseated. She walked with physical therapy this morning and is tolerating sitting on her chair. She denies any pain. OBJECTIVE: VITAL SIGNS: Blood pressure of 111/59, temperature of 99.1, pulse of 76, respirations of 18, O2 saturation 97% on room air. GENERAL: The patient is a chronically ill-appearing, alert. HEENT: Normocephalic and atraumatic. Wet mucous membrane. NECK: Supple. Negative for lymphadenopathy. CHEST AND LUNGS: Symmetrical expansion. Clear to auscultation. HEART: Irregularly irregular. No murmur, rubs, or gallops. ABDOMEN: Flat, soft, nontender. Positive for suprapubic catheter. PSYCH: Appropriate affect and demeanor. LABORATORY DATA: Hemoglobin of 10.9, hematocrit of 34.1. Glucose of 98. ASSESSMENT: 1. Slightly improved mental status. 2. Physical deconditioning after prolonged hospitalization secondary to complicated urinary tract infection with sepsis. 3. Poor oral intake. 4. Demand ischemia/mob-QZ-hhpuobk elevation myocardial infarction. 5. History of severe hypokalemia with hypomagnesemia resulting to bouts of ventricular fibrillation and torsades, resolved. 6. Elevated creatinine, improved. 7. History of hemorrhagic pituitary adenoma. 8. Hypertension. 9. Cardiomegaly. 10. Diabetes mellitus. 11. Dementia. 12. Recurrent urinary tract infection. PLAN: We will need to discuss with family about discharge planning, the patient definitely will need home health with physical and occupational therapy, she has good family support, but due to non-improvement of her condition, the patient may need full-time care at home or possible longterm placement. We will discontinue her last bag of normal saline. Code status, DNI/DNAR. Job ID: [id number]
[2019-06-04] MEDS: Ondansetron ODT 4 MG TAB PO PRN (21:30)
[2019-06-04] MEDS: Atorvastatin Calcium 40 MG TAB PO SCH (21:34)
[2019-06-04] MEDS: Donepezil HCl 10 MG TAB PO SCH (21:34)
[2019-06-04] MEDS: Fenofibrate Nanocrystallized 145 MG TAB PO SCH (21:34)
[2019-06-05 04:28] LABS: Hemoglobin 9.8 g/dL (12.0-16.0); Platelet Count 292 thou/uL (130-400)
[2019-06-05] MEDS: Levothyroxine Sodium 50 MCG TAB PO SCH (06:18)
[2019-06-05] MEDS: Albuterol Sulfate 1.25 MG/3 ML NEB NEB SCH ×3 (06:19→22:10)
[2019-06-05] MEDS: Rivaroxaban 10 MG TAB PO SCH (08:28)
[2019-06-05] MEDS: Trospium 20 MG TAB PO SCH ×2 (08:29→20:27)
[2019-06-05] MEDS: Docusate 100 MG CAP PO SCH (08:30)
[2019-06-05] MEDS: Megestrol Acetate 40 MG TAB PO SCH (08:30)
[2019-06-05] MEDS: Ondansetron ODT 4 MG TAB PO PRN ×2 (11:01→20:24)
--- NOTE | 2019-06-05 15:37 | CT ---
CT OF THE ABDOMEN AND PELVIS WITHOUT CONTRAST: 06/05/[address] of the abdomen and pelvis was performed for evaluation of chronic nausea and weakness. Comparison is made with the prior CT dated 05/01/18. The lung bases are clear. Dense calcifications are seen around the mitral annulus. The lung bases are clear except for some dependent atelectasis. Dense calcifications are seen around the mitral annulu s. The liver, spleen, and pancreas were unremarkable within the limitations of a noncontrast study. The re appears to have been prior surgical resection of the right adrenal gland. I do not see a gallbladd er. No renal masses or hydronephrosis were present. The aorta is normal in caliber. A small hiatal hernia is present. There is no distension of any of the loops of bowel. Previously, th ere was sigmoid diverticulitis, but the fat around this area today is clear. There is some streaking around the posterior parts of the rectum just above the anorectal junction. This seems a little more prominent than it was previously. The significance of this is not completely known. It would imply th e possibility of some inflammation in the region, however, it would seem unlikely that it would cause the symptoms listed. No free air or free fluid was seen. CT of the pelvis showed no pelvic masses, localized fluid collections, or inflammatory changes other than the streaking seen around the low rectal area. The bony structures appeared intact. Degenerative changes are seen in the spine at multiple levels. IMPRESSION: 1. No findings in the upper abdomen to explain the patient's chronic nausea. 2. Some increased streaking in the fat around the lower part of the rectum of unknown significan ce. This could signify inflammatory change in or around the rectum, though that does not appear to ex plain the symptoms that were described. Correlate with clinical exam. POS: HOME
[2019-06-05] MEDS: Sodium Chloride 0.45% 1,000 ML IV SCH (16:18)
[2019-06-05] MEDS: Atorvastatin Calcium 40 MG TAB PO SCH (20:27)
[2019-06-05] MEDS: Donepezil HCl 10 MG TAB PO SCH (20:27)
[2019-06-05] MEDS: Fenofibrate Nanocrystallized 145 MG TAB PO SCH (20:27)
[2019-06-05] MEDS: Hyoscyamine Sulfate SL 0.125 mg Tablet SL PRN (22:26)
[2019-06-06] MEDS: Albuterol Sulfate 1.25 MG/3 ML NEB NEB SCH ×3 (06:17→23:02)
[2019-06-06] MEDS: Levothyroxine Sodium 50 MCG TAB PO SCH (06:17)
[2019-06-06] MEDS: Ondansetron ODT 4 MG TAB PO PRN ×3 (07:33→22:59)
[2019-06-06] MEDS: Trospium 20 MG TAB PO SCH ×2 (08:54→21:38)
[2019-06-06] MEDS: Rivaroxaban 10 MG TAB PO SCH (08:55)
[2019-06-06] MEDS: Docusate 100 MG CAP PO SCH (08:56)
[2019-06-06] MEDS: Megestrol Acetate 40 MG TAB PO SCH (08:56)
[2019-06-06] MEDS: Hyoscyamine Sulfate SL 0.125 mg Tablet SL PRN ×2 (11:05→17:34)
[2019-06-06] MEDS: Donepezil HCl 10 MG TAB PO SCH (21:38)
[2019-06-06] MEDS: Atorvastatin Calcium 40 MG TAB PO SCH (21:38)
[2019-06-06] MEDS: Fenofibrate Nanocrystallized 145 MG TAB PO SCH (21:38)
[2019-06-07 04:48] LABS: #Basophils 0.1 thou/uL (0.0-0.2); #Eosinphils 0.2 thou/uL (0.0-0.7); #Lymphocytes 1.9 thou/uL (1.20-3.40); #Monocytes 0.6 thou/uL (0.11-0.59); %Basophils 1.6 % (0.0-1.0); %Eosinophils 2.4 % (0.0-10.0); %Lymphocytes 23.9 % (21.0-51.0); %Monocytes 7.5 % (0.0-10.0); %Neutrophils 64.6 % (42.0-75.0); Hemoglobin 9.8 g/dL (12.0-16.0); Mean Corpuscular HGB CONC 31.4 g/dL (32.0-36.0); Mean Corpuscular Volume 92.3 fL (78.0-98.0); Mean Platelet Volume 7.7 fL (7.4-10.4); Platelet Count 266 thou/uL (130-400); RBC Distribution Width 13.2 % (11.5-14.5); White Blood Cell (WBC) Count 7.8 thou/uL (4.8-10.8)
[2019-06-07] MEDS: Hyoscyamine Sulfate SL 0.125 mg Tablet SL PRN ×2 (05:15→21:27)
[2019-06-07] MEDS: Levothyroxine Sodium 50 MCG TAB PO SCH (05:15)
[2019-06-07] MEDS: Albuterol Sulfate 1.25 MG/3 ML NEB NEB SCH ×3 (06:03→22:17)
[2019-06-07 08:05] LABS: ALT (SGPT) 17 U/L (8-55); AST (SGOT) 49 U/L (5-34); Albumin 3.1 g/dL (3.4-4.8); Alkaline Phosphatase 41 U/L (40-150); Anion Gap 13 mmol/L (10-20); BUN (Urea Nitrogen) 15 mg/dL (9.8-20.1); Bilirubin, Total 0.9 mg/dL (0.2-1.2); Calc. Creatinine Clearance 30 mL/min (70-130); Calcium 8.2 mg/dL (7.8-10.44); Carbon Dioxide 22 mmol/L (23-31); Chloride 107 mmol/L (98-107); Estimated GFR-MDRD 33; Glucose 80 mg/dL (83-110); Lipase 15 U/L (8-78); Potassium 3.7 mmol/L (3.5-5.1); Protein, Total 5.1 g/dL (6.0-8.3); Sodium 138 mmol/L (136-145)
[2019-06-07] MEDS: Ondansetron ODT 4 MG TAB PO PRN (08:46)
[2019-06-07] MEDS: Trospium 20 MG TAB PO SCH ×2 (09:55→22:16)
[2019-06-07] MEDS: Rivaroxaban 10 MG TAB PO SCH (09:56)
[2019-06-07] MEDS: Docusate 100 MG CAP PO SCH (09:57)
[2019-06-07] MEDS: Megestrol Acetate 40 MG TAB PO SCH (09:57)
[2019-06-07] MEDS: Ondansetron ODT 4 MG TAB PO SCH ×3 (12:57→23:36)
[2019-06-07] MEDS ORDERED: HYDROcodone/Acetaminophen 5/325 mg Tablet PO PRN (18:47)
[2019-06-07] MEDS: Donepezil HCl 10 MG TAB PO SCH (22:15)
[2019-06-07] MEDS: Atorvastatin Calcium 40 MG TAB PO SCH (22:16)
[2019-06-07] MEDS: Fenofibrate Nanocrystallized 145 MG TAB PO SCH (22:16)
[2019-06-08] MEDS: Levothyroxine Sodium 50 MCG TAB PO SCH (06:13)
[2019-06-08] MEDS: Ondansetron ODT 4 MG TAB PO SCH ×4 (06:13→23:45)
[2019-06-08] MEDS: Albuterol Sulfate 1.25 MG/3 ML NEB NEB SCH ×3 (06:13→23:46)
[2019-06-08] MEDS: Trospium 20 MG TAB PO SCH ×2 (08:19→21:50)
[2019-06-08] MEDS: Docusate 100 MG CAP PO SCH (08:20)
[2019-06-08] MEDS: Megestrol Acetate 40 MG TAB PO SCH (08:20)
[2019-06-08] MEDS: Rivaroxaban 10 MG TAB PO SCH (08:20)
[2019-06-08] MEDS: Hyoscyamine Sulfate SL 0.125 mg Tablet SL PRN (08:21)
[2019-06-08] MEDS: Fenofibrate Nanocrystallized 145 MG TAB PO SCH (21:49)
[2019-06-08] MEDS: Atorvastatin Calcium 40 MG TAB PO SCH (21:49)
[2019-06-08] MEDS: Donepezil HCl 10 MG TAB PO SCH (21:49)
[2019-06-09 04:44] LABS: Hemoglobin 9.4 g/dL (12.0-16.0); Platelet Count 250 thou/uL (130-400)
[2019-06-09] MEDS: Levothyroxine Sodium 50 MCG TAB PO SCH (06:17)
[2019-06-09] MEDS: Albuterol Sulfate 1.25 MG/3 ML NEB NEB SCH ×2 (06:17→15:06)
[2019-06-09] MEDS: Ondansetron ODT 4 MG TAB PO SCH ×3 (06:17→16:36)
[2019-06-09] MEDS: Rivaroxaban 10 MG TAB PO SCH (09:03)
[2019-06-09] MEDS: Megestrol Acetate 40 MG TAB PO SCH (09:04)
[2019-06-09] MEDS: Docusate 100 MG CAP PO SCH (09:04)
[2019-06-09] MEDS: Trospium 20 MG TAB PO SCH ×2 (09:04→20:30)
[2019-06-09] MEDS: Fenofibrate Nanocrystallized 145 MG TAB PO SCH (20:30)
[2019-06-09] MEDS: Atorvastatin Calcium 40 MG TAB PO SCH (20:30)
[2019-06-09] MEDS: Donepezil HCl 10 MG TAB PO SCH (20:30)
[2019-06-10] MEDS: Albuterol Sulfate 1.25 MG/3 ML NEB NEB SCH ×4 (00:12→22:20)
[2019-06-10] MEDS: Ondansetron ODT 4 MG TAB PO SCH ×5 (00:12→22:43)
[2019-06-10] MEDS: Levothyroxine Sodium 50 MCG TAB PO SCH (05:26)
[2019-06-10] MEDS: Trospium 20 MG TAB PO SCH ×2 (09:11→20:46)
[2019-06-10] MEDS: Rivaroxaban 10 MG TAB PO SCH (09:11)
[2019-06-10] MEDS: Docusate 100 MG CAP PO SCH (09:12)
[2019-06-10] MEDS: Megestrol Acetate 40 MG TAB PO SCH (09:12)
[2019-06-10] MEDS: Hyoscyamine Sulfate SL 0.125 mg Tablet SL PRN (14:00)
[2019-06-10] MEDS: Polyethylene Glycol 3350 17 GM Packet PO PRN (18:15)
[2019-06-10] MEDS: Fenofibrate Nanocrystallized 145 MG TAB PO SCH (20:45)
[2019-06-10] MEDS: Donepezil HCl 10 MG TAB PO SCH (20:46)
[2019-06-10] MEDS: Atorvastatin Calcium 40 MG TAB PO SCH (20:46)
[2019-06-11 05:32] LABS: Hemoglobin 9.7 g/dL (12.0-16.0); Platelet Count 232 thou/uL (130-400)
[2019-06-11] MEDS: Levothyroxine Sodium 50 MCG TAB PO SCH (06:08)
[2019-06-11] MEDS: Ondansetron ODT 4 MG TAB PO SCH ×3 (06:11→17:36)
[2019-06-11] MEDS: Albuterol Sulfate 1.25 MG/3 ML NEB NEB SCH ×2 (06:12→16:04)
[2019-06-11] MEDS: Polyethylene Glycol 3350 17 GM Packet PO PRN (09:38)
[2019-06-11] MEDS: Docusate 100 MG CAP PO SCH (09:39)
[2019-06-11] MEDS: Rivaroxaban 10 MG TAB PO SCH (09:39)
[2019-06-11] MEDS: Trospium 20 MG TAB PO SCH ×2 (09:39→21:17)
[2019-06-11] MEDS: Megestrol Acetate 40 MG TAB PO SCH (09:40)
[2019-06-11] MEDS: Hyoscyamine Sulfate SL 0.125 mg Tablet SL PRN (17:35)
[2019-06-11] MEDS: Donepezil HCl 10 MG TAB PO SCH (21:17)
[2019-06-11] MEDS: Fenofibrate Nanocrystallized 145 MG TAB PO SCH (21:17)
[2019-06-11] MEDS: Atorvastatin Calcium 40 MG TAB PO SCH (21:17)
[2019-06-12] MEDS: Ondansetron ODT 4 MG TAB PO SCH ×5 (00:02→23:58)
[2019-06-12] MEDS: Albuterol Sulfate 1.25 MG/3 ML NEB NEB SCH ×4 (00:02→23:58)
[2019-06-12] MEDS ORDERED: Levothyroxine Sodium 50 MCG TAB PO SCH (06:15)
[2019-06-12] MEDS: Levothyroxine Sodium 50 MCG TAB PO SCH (06:24)
[2019-06-12] MEDS: Polyethylene Glycol 3350 17 GM Packet PO PRN (09:27)
[2019-06-12] MEDS: Trospium 20 MG TAB PO SCH ×2 (09:27→21:09)
[2019-06-12] MEDS: Rivaroxaban 10 MG TAB PO SCH (09:27)
[2019-06-12] MEDS: Docusate 100 MG CAP PO SCH (09:28)
[2019-06-12] MEDS: Megestrol Acetate 40 MG TAB PO SCH (09:28)
[2019-06-12] MEDS: Fenofibrate Nanocrystallized 145 MG TAB PO SCH (21:08)
[2019-06-12] MEDS: Atorvastatin Calcium 40 MG TAB PO SCH (21:08)
[2019-06-12] MEDS: Donepezil HCl 10 MG TAB PO SCH (21:09)
[2019-06-13 05:34] LABS: Hemoglobin 9.5 g/dL (12.0-16.0); Platelet Count 255 thou/uL (130-400)
[2019-06-13] MEDS: Levothyroxine Sodium 50 MCG TAB PO SCH (06:00)
[2019-06-13] MEDS: Ondansetron ODT 4 MG TAB PO SCH ×3 (06:02→17:00)
[2019-06-13] MEDS: Albuterol Sulfate 1.25 MG/3 ML NEB NEB SCH ×2 (06:03→14:09)
[2019-06-13] MEDS: Docusate 100 MG CAP PO SCH (08:37)
[2019-06-13] MEDS: Rivaroxaban 10 MG TAB PO SCH (08:37)
[2019-06-13] MEDS: Megestrol Acetate 40 MG TAB PO SCH (08:38)
[2019-06-13] MEDS: Trospium 20 MG TAB PO SCH ×2 (08:39→22:03)
[2019-06-13] MEDS: Polyethylene Glycol 3350 17 GM Packet PO PRN (08:41)
[2019-06-13] MEDS: Donepezil HCl 10 MG TAB PO SCH (22:04)
[2019-06-13] MEDS: Fenofibrate Nanocrystallized 145 MG TAB PO SCH (22:04)
[2019-06-13] MEDS: Atorvastatin Calcium 40 MG TAB PO SCH (22:04)
[2019-06-14] MEDS: Ondansetron ODT 4 MG TAB PO SCH ×3 (00:11→11:39)
[2019-06-14] MEDS: Albuterol Sulfate 1.25 MG/3 ML NEB NEB SCH ×2 (00:12→05:57)
[2019-06-14] MEDS: Levothyroxine Sodium 50 MCG TAB PO SCH (05:53)
[2019-06-14 06:28] VITALS: BP 122/58; TEMP 98.3
[2019-06-14] MEDS: Rivaroxaban 10 MG TAB PO SCH (08:57)
[2019-06-14] MEDS: Megestrol Acetate 40 MG TAB PO SCH (08:58)
[2019-06-14] MEDS: Trospium 20 MG TAB PO SCH (08:58)
[2019-06-14] MEDS: Docusate 100 MG CAP PO SCH (09:02)
== END 2019-06-14 12:07 | disposition home or self-care (01) | DRG 689 ==
LOC: BURMED 22:57
PROVIDERS: ADMIT Family Medicine; ATTEND Family Medicine
DX: N39.0 Urinary tract infection, site not specified (principal); I21.A1 Myocardial infarction type 2; E11.9 Type 2 diabetes mellitus without complications; E03.9 Hypothyroidism, unspecified; Z66 Do not resuscitate; E78.5 Hyperlipidemia, unspecified; K21.9 Gastro-esophageal reflux disease without esophagitis; M19.90 Unspecified osteoarthritis, unspecified site; I48.2 Chronic atrial fibrillation; F03.90 Unspecified dementia, unspecified severity, without behavioral disturbance, psychotic disturbance, mood disturbance, and anxiety; R41.82 Altered mental status, unspecified; R79.89 Other specified abnormal findings of blood chemistry; R53.81 Other malaise; K59.00 Constipation, unspecified; R11.2 Nausea with vomiting, unspecified; Z96.653 Presence of artificial knee joint, bilateral; I51.7 Cardiomegaly; Z90.89 Acquired absence of other organs; Z90.49 Acquired absence of other specified parts of digestive tract; Z88.0 Allergy status to penicillin; Z88.5 Allergy status to narcotic agent; Z91.040 Latex allergy status; Z79.4 Long term (current) use of insulin; Z79.01 Long term (current) use of anticoagulants
CPT/HCPCS: 36415; 36416; 70450; 71045; 74176; 80048; 80053; 81001; 82565; 83690; 83735; 85014; 85018; 85025; 85049; 87086; A4353; J1815; Q0162; Q0169; S0179